=== PATIENT | male | born 1940 | race Caucasian/White ===

== ENCOUNTER → 2020-04-24 | Outpatient (CLI) | payer MEDICARE ==
--- NOTE | 2020-04-24 18:00 | ECHOF ---
Referral Reason:R01.1 heart murmur MEASUREMENTS -------- HEIGHT: 177.8 cm WEIGHT: 86.6 kg BP: RVIDd: 4.1 cm (< 3.3) IVSd: 1.4 cm (0.6 - 1.1) LVIDd: 4.0 cm (3.9 - 5.3) LVPWd: 1.5 cm (0.6 - 1.1) IVSs: 1.4 cm LVIDs: 1.7 cm LVPWs: 1.8 cm LAESV Index (A-L): 29.66 ml/m Ao Diam: 3.7 cm (2.0 - 3.7) AV Cusp: 1.8 cm (1.5 - 2.6) MV EXCURSION: 15.965 mm (> 18.000) MV EF SLOPE: 45 mm/s (70 - 150) EPSS: 0.2 cm MV E Pratik: 0.44 m/s MV DecT: 199 ms MV A Pratik: 0.71 m/s MV E/A Ratio: 0.62 AV maxP.06 mmHg AV meanP.89 mmHg RAP: 5.00 mmHg RVSP: 15.17 mmHg FINDINGS -------- Sinus rhythm. This was a technically adequate study. The left ventricular size is normal. There is moderate concentric left ventricular hypertrophy. O verall left ventricular systolic function is normal with, an EF between 55 - 60 %. The diastolic fi lling pattern is normal for the age of the patient 12.24. The right ventricle is moderately enlarged. LA is midly dilated 29-33ml/m2. The right atrial size is normal. Mobile interatrial septum. There is moderate aortic valve sclerosis. There is no evidence of aortic regurgitation. There is no evidence of aortic stenosis. The mitral valve leaflets are mildly thickened. There is trace mitral regurgitation. The tricuspid valve appears structurally normal. Mild tricuspid regurgitation present. There is n o evidence of pulmonary hypertension. The right ventricular systolic pressure, as measured by Doppl er, is 15.17mmHg. The pulmonic valve was not well visualized. There is no pulmonic regurgitation present. The aortic root size is normal. IVC Not well visulized. There is no pericardial effusion. CONCLUSIONS -------- 1. There is moderate concentric left ventricular hypertrophy. 2. Overall left ventricular systolic function is normal with, an EF between 55 - 60 %. 3. The right ventricle is moderately enlarged. 4. LA is midly dilated 29-33ml/m2. 5. Mobile interatrial septum. 6. There is moderate aortic valve sclerosis. 7. There is trace mitral regurgitation. 8. Mild tricuspid regurgitation present. 9. There is no pericardial effusion. PLASTIC BATTERY ASSEMBLER: Eileen Kennedy RDCS
== END | disposition home or self-care (01) ==
LOC: RADECHMAIN 13:35
PROVIDERS: ATTEND Family Medicine
DX: I08.2 Rheumatic disorders of both aortic and tricuspid valves (principal); Q21.1 Atrial septal defect
CPT/HCPCS: 93306

== ENCOUNTER → 2020-06-24 | Outpatient (CLI) | payer MEDICARE ==
[2020-06-24 16:54] LABS: Chol/HDL Ratio 4.31; LDL Cholesterol,Calculated 134.6 mg/dL (0.0-131.0); VLDL Calculation 27.4 mg/dL (5.00-40.00)
== END | disposition home or self-care (01) ==
LOC: LABWHC1 10:13
PROVIDERS: ATTEND Family Medicine
DX: E78.5 Hyperlipidemia, unspecified (principal)
CPT/HCPCS: 36415; 80061

== ENCOUNTER → 2020-08-12 | Outpatient (CLI) | payer MEDICARE ==
--- NOTE | 2020-08-12 13:53 | XR ---
EXAMINATION TYPE: XR Hip Complete LT DATE OF EXAM: 08/12/2020 CLINICAL HISTORY: Pain in the left hip. TECHNIQUE: AP and frogleg views of the left hip are obtained. COMPARISON: None. FINDINGS: No evidence of acute fracture or dislocation of left hip. There is moderate superior compar tment joint space narrowing with subchondral sclerosis last hilum suggestive of osteoarthritis. Presu med left pelvic phleboliths. IMPRESSION: 1. No evidence of acute fracture or dislocation of the left hip. Moderate osteoarthritis of the left hip.
== END | disposition home or self-care (01) ==
LOC: RADXRMAIN 10:26
PROVIDERS: ATTEND Internal Medicine Rheumatology
DX: M16.12 Unilateral primary osteoarthritis, left hip (principal)
CPT/HCPCS: 73502

== ENCOUNTER → 2020-11-26 | Outpatient (CLI) | payer MEDICARE ==
--- NOTE | 2020-11-26 18:00 | ECHOF ---
Referral Reason:M54.16 Lumbar radiculopathy MEASUREMENTS -------- HEIGHT: 182.9 cm WEIGHT: 83.9 kg BP: IVSd: 1.4 cm (0.6 - 1.1) LVIDd: 3.9 cm (3.9 - 5.3) LVPWd: 1.7 cm (0.6 - 1.1) EDV(Teich): 68 ml IVSs: 1.4 cm LVIDs: 2.8 cm LVPWs: 1.7 cm %IVS Thck: 1 % ESV(Teich): 29 ml EF(Teich): 57 % %FS: 29 % SV(Teich): 38 ml RVIDd: 3.8 cm (< 3.3) PARDEEP Planimetry: 1.9 cm LALs A4C: 4.3 cm LAAs A4C: 14.3 cm LAESV A-L A4C: 40 ml LAESV MOD A4C: 40 ml LALs A2C: 5.6 cm LAAs A2C: 21.1 cm LAESV A-L A2C: 68 ml LAESV MOD A2C: 64 ml LAESV(A-L): 60 ml LAESV Index (A-L): 28.91 ml/m Ao Diam: 3.7 cm (2.0 - 3.7) AV Cusp: 1.1 cm (1.5 - 2.6) EPSS: 0.1 cm MV E Pratik: 0.45 m/s MV DecT: 273 ms MV Dec [place]: 1.6 m/s MV A Pratik: 0.77 m/s MV E/A Ratio: 0.59 MV PHT: 79 ms LVOT Vmax: 0.97 m/s LVOT maxP.75 mmHg LVOT Vmax: 0.98 m/s LVOT Vmean: 0.64 m/s LVOT maxP.83 mmHg LVOT meanP.91 mmHg LVOT Env.Ti: 304 ms LVOT VTI: 19.6 cm AV Vmax: 2.09 m/s AV maxP.55 mmHg AV Vmax: 2.29 m/s AV Vmean: 1.49 m/s AV maxP.94 mmHg AV meanP.82 mmHg AV Env.Ti: 295 ms AV VTI: 41.4 cm MV EF SLOPE: 125.38 mm/s (70 - 150) MV EXCURSION: 17.01 mm (> 18.000) FINDINGS -------- Sinus rhythm. This was a technically good study. The left ventricular size is normal. There is moderate concentric left ventricular hypertrophy. O verall left ventricular systolic function is low-normal with, an EF between 50 - 55 %. The right ventricle is mild to moderately enlarged. LA is midly dilated 29-33ml/m2. The right atrial size is normal. There is mild aortic stenosis present. Peak/mean gradient across the Aortic Valve is 20.94mmHg / 11 .82mmHg. Mild mitral regurgitation is present. Mild tricuspid regurgitation present. Right ventricular systolic pressure is normal at < 35 mmHg. There is no pulmonic regurgitation present. There is no pericardial effusion. CONCLUSIONS -------- 1. The left ventricular size is normal. 2. Overall left ventricular systolic function is low-normal with, an EF between 50 - 55 %. 3. The right ventricle is mild to moderately enlarged. 4. LA is midly dilated 29-33ml/m2. 5. The right atrial size is normal. 6. There is mild aortic stenosis present. 7. Peak/mean gradient across the Aortic Valve is 20.94mmHg / 11.82mmHg. 8. Mild mitral regurgitation is present. 9. Mild tricuspid regurgitation present. 10. There is no pericardial effusion. BIRD RAISER: Nel Reza RDCS
== END | disposition home or self-care (01) ==
LOC: RADNMMAIN 08:53 → RADECHMAIN 08:57
PROVIDERS: ATTEND Family Medicine
DX: I08.3 Combined rheumatic disorders of mitral, aortic and tricuspid valves (principal)
CPT/HCPCS: 93306

== ENCOUNTER → 2020-12-01 | Outpatient (CLI) | payer MEDICARE ==
--- NOTE | 2020-12-01 14:23 | EST ---
EXERCISE STRESS AGE: 80 SEX: M HT: 5'10" WT: 185 lbs. PROTOCOL: Alex STAGE: 2 DURATION OF EXERCISE: 5:00 HEART RATE REST: 72 BLOOD PRESSURE REST: 164/96 MAXIMUM HEART RATE ACHIEVED: 129 MAXIMUM BLOOD PRESSURE: 204/106 85% MPHR: 120 100% MPHR: 141 METS: 7 INDICATIONS: Fatigue. CLINICAL INFORMATION: Baseline EKG shows sinus rhythm, normal axis, normal intervals. Patient exercised on Alex protocol for a total of 5 minutes, achieving 6 METS, 91% of predicted maximal heart rate without chest pain or diagnostic ST-segment depression. CONCLUSION: 1. Poor exercise tolerance. 2. Negative stress test by EKG criteria. MMODL / IJN: [id number] /
== END | disposition home or self-care (01) ==
LOC: RADNMMAIN 09:18
PROVIDERS: ATTEND Family Medicine
DX: R53.83 Other fatigue (principal)
CPT/HCPCS: 93017

== ENCOUNTER → 2020-12-10 | Outpatient (CLI) | payer MEDICARE ==
--- NOTE | 2020-12-10 16:12 | CT ---
EXAMINATION TYPE: CT chest wo con DATE OF EXAM: 12/10/2020 COMPARISON: NONE HISTORY: Myasthenia gravis w/o acute exacerbation CT DLP: 460 mGycm. Automated Exposure Control for Dose Reduction was Utilized. TECHNIQUE: CT scan of the thorax is performed without IV contrast. FINDINGS: LUNGS: Some dependent atelectasis in the bilateral lower lobes. No suspicious noncalcified pulmonar y nodules or masses. There is 4 to 5 mm benign calcified nodule or granuloma left upper lobe axial im age 19. There is no pleural effusion or pneumothorax seen bilaterally. The tracheobronchial tree is patent. MEDIASTINUM: Lack of IV contrast is noted to limit evaluation for mediastinal and especially hilar ad enopathy. There are no definitive greater than 1 cm noncalcified mediastinal lymph nodes. There are calcified subcentimeter left hilar lymph nodes. Anterior superior mediastinum shows no suspicious mas s. Moderate to severe three-vessel coronary artery calcification is present. No cardiomegaly. Trace p ericardial effusion is seen. OTHER: Punctate calcifications throughout the spleen system with product of old granulomatous disease . Exaggerated thoracic kyphosis. Slight scoliotic curvature. Fairly moderate multilevel spurring. Mod erate to severe disc space narrowing noted at T7-T8 and T8-T9 levels. IMPRESSION: No suspicious anterior superior mediastinal mass to suggest thymoma. Evidence of old gran ulomatous disease. No acute pulmonary process.
== END | disposition home or self-care (01) ==
LOC: RADCTMAIN 14:57
PROVIDERS: ATTEND Psychiatry & Neurology Neurology
DX: J84.10 Pulmonary fibrosis, unspecified (principal)
CPT/HCPCS: 71250

== ENCOUNTER → 2020-12-15 | Outpatient (CLI) | payer MEDICARE ==
--- NOTE | 2020-12-15 21:31 | MR ---
EXAMINATION TYPE: MR lumbar spine wo con DATE OF EXAM: 12/15/2020 COMPARISON: None HISTORY: Lumbar radiculopathy CONTRAST: 0 mL intravenous . TECHNIQUE: Multiplanar, multisequence images of the lumbar spine were acquired. FINDINGS: L5-S1: No significant disc bulge or disc herniation. No spinal canal stenosis. No foraminal stenosi s. L4-L5: There is loss of disc height is well. Broad-based disc bulge is present. Small central protrus ion is present. No spinal canal stenosis is present. Asymmetric disc bulging to the left foramen is p resent with severe foraminal stenosis. Mild right foraminal narrowing is present. There is increased signal within the posterior disc space compatible with an annular tear centrally. L3-L4: Disc space narrowing is present. Broad-based disc bulge has moderate anterior thecal sac compr ession. Facet hypertrophy and ligamentum flavum laxity have posterior lateral thecal sac compression. These are contributing to spinal canal stenosis. L2-L3: Broad-based disc bulge is moderate anterior thecal sac compression. Some mild canal stenosis f rom disc bulge and facet hypertrophy may be present. Facet hypertrophy and ligamentum flavum laxity o f posterior lateral thecal sac compression. Severe right foraminal stenosis is present L1-L2: Broad-based disc bulge with mild anterior thecal sac compression. Facet hypertrophy is present . No spinal canal stenosis is present. Moderate right and moderate to severe left foraminal stenosis is present. T12-L1: A based disc bulges mild anterior thecal sac compression. No spinal canal stenosis present. N o foramen are patent. IMPRESSION: 1. Degenerative disc changes greatest 034 L4-5 with milder degenerative disc changes to the remaining upper lumbar spine. 2. Spinal canal stenosis due to disc bulging and facet hypertrophy at L3-4. Milder foraminal narrowin g may be present at L2-3 from similar findings. 3. Disc bulging and foramen contributing to moderate to severe foraminal stenosis discussed above
== END | disposition home or self-care (01) ==
LOC: RADMRIMAIN 10:38
PROVIDERS: ATTEND Family Medicine
DX: M48.061 Spinal stenosis, lumbar region without neurogenic claudication (principal); M51.16 Intervertebral disc disorders with radiculopathy, lumbar region; M99.73 Connective tissue and disc stenosis of intervertebral foramina of lumbar region; M89.38 Hypertrophy of bone, other site
CPT/HCPCS: 72148

== ENCOUNTER → 2020-12-15 | Outpatient (CLI) | payer MEDICARE ==
[2020-12-15 18:35] LABS: Basophils # (A) 0.04 X 10*3/uL (0.00-0.10); Basophils % (A) 0.7 %; Eosinophils # (A) 0.13 X 10*3/uL (0.04-0.35); Eosinophils % (A) 2.3 %; HCT 47.9 % (39.6-50.0); HGB 15.5 g/dL (13.0-17.0); Lymphocytes # (A) 1.46 X 10*3/uL (0.90-5.00); Lymphocytes % (A) 26.3 %; MCH 30.5 pg (27.0-32.0); MCHC 32.4 g/dL (32.0-37.0); MCV 94.1 fL (80.0-97.0); Mean Platelet Volume 9.8 fL (9.5-12.2); Monocytes # (A) 0.52 X 10*3/uL (0.20-1.00); Monocytes % (A) 9.4 %; Neutrophils # (A) 3.38 X 10*3/uL (1.80-7.70); Neutrophils % (A) 60.9 %; Platelet Count 134 X 10*3/uL (140-440); RBC 5.09 X 10*6/uL (4.40-5.60); RDW 13.2 % (11.5-14.5); WBC 5.55 X 10*3/uL (4.50-10.00)
[2020-12-15 19:20] LABS: Erythrocyte Sedimentation Rate 3 mm/Hr (0-20)
[2020-12-15 22:05] LABS: ALT 20 U/L (10-49); AST 22 U/L (14-35); African American GFR (CKD) 98.5 (60.0-200.0); Alkaline Phosphatase 104 U/L (41-126); C Reactive Protein <0.4 mg/dL (0.0-0.8); Calcium 9.6 mg/dL (8.7-10.3); Carbon Dioxide 27.2 mmol/L (21.6-31.8); Chloride 110 mmol/L (96-109); Globulin 1.8 g/dL (1.6-3.3); Glucose 90 mg/dL (70-110); Potassium 4.2 mmol/L (3.5-5.5); Sodium 145 mmol/L (135-145); Total Bilirubin 0.7 mg/dL (0.3-1.2); Total Protein 6.3 g/dL (6.2-8.2)
== END | disposition home or self-care (01) ==
LOC: LABWHC1 11:27
PROVIDERS: ATTEND Internal Medicine Rheumatology
DX: L40.50 Arthropathic psoriasis, unspecified (principal); Z79.899 Other long term (current) drug therapy
CPT/HCPCS: 36415; 80053; 85025; 85652; 86140

== ENCOUNTER → 2020-12-28 | Outpatient (CLI) | payer MEDICARE ==
[2020-12-28 20:38] LABS: Basophils # (A) 0.04 X 10*3/uL (0.00-0.10); Basophils % (A) 0.6 %; Eosinophils # (A) 0.14 X 10*3/uL (0.04-0.35); HCT 47.8 % (39.6-50.0); HGB 15.7 g/dL (13.0-17.0); Lymphocytes # (A) 1.32 X 10*3/uL (0.90-5.00); Lymphocytes % (A) 18.7 %; MCH 31.8 pg (27.0-32.0); MCHC 32.8 g/dL (32.0-37.0); MCV 96.8 fL (80.0-97.0); Mean Platelet Volume 9.9 fL (9.5-12.2); Monocytes # (A) 0.58 X 10*3/uL (0.20-1.00); Monocytes % (A) 8.2 %; Neutrophils # (A) 4.95 X 10*3/uL (1.80-7.70); Neutrophils % (A) 70.2 %; Platelet Count 164 X 10*3/uL (140-440); RBC 4.94 X 10*6/uL (4.40-5.60); RDW 13.2 % (11.5-14.5); WBC 7.05 X 10*3/uL (4.50-10.00)
[2020-12-28 21:15] LABS: % Iron Saturation 16.1 (15.00-50.00); T4, Free (Free Thyroxine) 1.13 ng/dL (0.800-1.800)
[2020-12-29 03:49] LABS: African American GFR (CKD) 94.6 (60.0-200.0); Albumin 4.3 g/dL (3.8-4.9); Albumin/Globulin Ratio 2.14 (1.60-3.17); Anion Gap 11.1 mmol/L (4.00-12.00); BUN/Creat Ratio 18.8 Ratio (12.00-20.00); Blood Urea Nitrogen 16.6 mg/dL (9.0-27.0); Calcium 9.6 mg/dL (8.7-10.3); Carbon Dioxide 24.8 mmol/L (21.6-31.8); Non-African American GFR(CKD) 81.6 (60.0-200.0); Potassium 4.6 mmol/L (3.5-5.5); Total Bilirubin 0.4 mg/dL (0.30-1.20); Total Protein 6.3 g/dL (6.2-8.2)
== END | disposition home or self-care (01) ==
LOC: LABWHC1 12:28
PROVIDERS: ATTEND Psychiatry & Neurology Pain Medicine
DX: E29.1 Testicular hypofunction (principal); R53.83 Other fatigue
CPT/HCPCS: 36415; 80053; 82533; 82550; 82626; 82728; 83036; 83540; 83550; 84402; 84403; 84439; 84443; 84466; 84481; 85025

== ENCOUNTER → 2021-01-22 | Outpatient (CLI) | payer MEDICARE | END | disposition home or self-care (01) | LOC: LABWHC1 10:57 | PROVIDERS: ATTEND Family Medicine | DX: E61.1 Iron deficiency (principal) | CPT/HCPCS: 36415; 83540 ==

== ENCOUNTER → 2021-07-12 | Outpatient (CLI) | payer MEDICARE ==
--- NOTE | 2021-07-12 13:02 | US ---
EXAMINATION TYPE: US abdomen complete DATE OF EXAM: 07/12/2021 COMPARISON: NONE CLINICAL HISTORY: R19.4 Change in bowel habits. Patient states he has a change in bowel habits. EXAM MEASUREMENTS: Liver Length: 14.4 cm Gallbladder Wall: 0.2 cm CBD: 0.6 cm Spleen: 10.6 cm Right Kidney: 10.1 x 4.9 x 5.8 cm Left Kidney: 11.1 x 4.4 x 5.4 cm Limited due to bowel gas Pancreas: Obscured by bowel gas Liver: Left lobe not well visualized, scanned through ribs Gallbladder: wnl Evidence for sonographic Jimenes's sign: neg CBD: Limited visualization Spleen: wnl Right Kidney: No hydronephrosis or masses seen Left Kidney: No hydronephrosis or masses seen Upper IVC: wnl Abd Aorta: proximal obscured by overlying bowel gas The liver is homogenous. The intrahepatic portion of the IVC and proximal abdominal aorta are within normal limits. There is no evidence of cholelithiasis. Common bile duct is unremarkable. The visu alized portions of the pancreas are homogenous. The spleen is unremarkable. Kidneys are symmetric a nd free of hydronephrosis. No renal lesions are seen. IMPRESSION: No significant abnormality appreciated.
--- NOTE | 2021-07-12 15:09 | NM ---
EXAMINATION TYPE: NM hepatobiliary w CCK DATE OF EXAM: 07/12/2021 COMPARISON: NONE HISTORY: Pain TECHNIQUE: After the intravenous administration of 4.15 mCi Tc 99m Mebrofenin hepatobiliary scintigra phy is performed. Immediate images post injection. FINDINGS: There is satisfactory initial accumulation of tracer by the liver. The gallbladder is visualized wit hin 14 minutes. The small bowel activity is noted within 60 minutes. At one hour CCK was administer ed, patient was injected with 1.7 mcg of Kinevac, and gallbladder ejection fraction is calculated at 97%. IMPRESSION: Correlate for hypercontractile state.
== END | disposition home or self-care (01) ==
LOC: RADUSWWP 12:16
PROVIDERS: ATTEND Family Medicine
DX: R19.4 Change in bowel habit (principal)
CPT/HCPCS: 76700; 78227; A9537; J2805

== ENCOUNTER → 2021-08-20 | Outpatient (CLI) | payer MEDICARE ==
[2021-08-20 10:38] LABS: African American GFR (CKD) >90 (>60 ml/min/1.73 sqM); Blood Urea Nitrogen 16 mg/dL (9-20); Non-African American GFR(CKD) 82 (>60 ml/min/1.73 sqM)
--- NOTE | 2021-08-20 14:30 | NM ---
EXAMINATION TYPE: NM bone scan whole body DATE OF EXAM: 08/20/2021 COMPARISON: Same day CT pelvis study HISTORY: Prostate cancer. Delayed whole-body scanning was performed following the injection of 23.0 mCi Tc 99m MDP. Images acq uired 3 hours post injection. Whole body images in anterior and posterior projection along with addit ional spot views of the abdomen and pelvis are acquired FINDINGS: There are areas of increased radiotracer uptake in the lumbar spine appear to correlate with areas of increased degenerative change left L4-L5 along with right L3-L4 and left L1-L2 levels. There is increased radiotracer uptake in the right anterolateral lower rib, correlate for recent trau ma or healing rib fracture. Horizontal increased uptake in mid to lower thoracic vertebra roughly T8 level could reflect subacute compression type fracture. Correlate clinically. No convincing scintigraphic evidence of metastatic disease to the bone when correlating with recent p elvic CT. Lucency from bilateral knee surgery is noted. Symmetric uptake likely reflects product of degenerativ e change bilateral first metatarsophalangeal joints associated with bunion toes. IMPRESSION: As above.
--- NOTE | 2021-08-20 14:59 | CT ---
CT pelvis with contrast HISTORY: Prostate cancer. COMPARISON: None TECHNIQUE: Multiple axial images are obtained through the pelvis following oral and IV contrast mater ial. FINDINGS: The bowel loops are not dilated and there is no evidence of obstruction. There is marked thickening o f the wall the sigmoid colon with a restricted lumen suspicious for chronic diverticulosis however ne oplasm is not entirely excluded. There are no inflammatory changes in the pericolic fat to suggest ac chinik diverticulitis. Prostate gland is moderately enlarged. There is no pelvic adenopathy, free fluid or abscess. Urinary bladder appears normal. The visualized osseous structures are intact there are no focal lytic or blastic osseous abnormalitie s. IMPRESSION: 1. Markedly abnormal sigmoid colon as described above consistent with chronic diverticulosis with sev ere intraluminal narrowing secondary to marked bowel wall thickening. Sigmoid neoplasm is not exclude d. No evidence of acute diverticulitis. 2. Moderate prostatic hypertrophy. 3. No pelvic adenopathy. 4. No focal osseous abnormalities.
== END | disposition home or self-care (01) ==
LOC: RADNMMAIN 09:41
PROVIDERS: ATTEND Urology
DX: C61 Malignant neoplasm of prostate (principal); N40.0 Benign prostatic hyperplasia without lower urinary tract symptoms
CPT/HCPCS: 82565; 84520; 72193; 36415; 78306; A9503; Q9967

== ENCOUNTER 2021-09-14 09:16 | Day surgery (SDC) | payer MEDICARE ==
[2021-09-10 10:31] VITALS: BMI 26.5
[~2021-09-14 09:16] MED LIST: LACTATED RINGERS 1,000 ML IV SCH; LIDOCAINE 1% (10MG/ML) FOR IV START INTRADERMA PRN
[2021-09-14 09:50] VITALS: PULSE 65; TEMP 97
[2021-09-14] MEDS ORDERED: PROPOFOL 10 MG/ML 20 ML VIAL IV ONE (10:36)
--- NOTE | 2021-09-14 10:53 | P.PCN ---
Date of Procedure: 09/14/21 Procedure(s) Performed: BRIEF HISTORY: Patient is a 81-year-old pleasant white male scheduled for an elective colonoscopy as a part of evaluation of change in bowel habits for the last 6 months duration. His been having diarrhea with 3-4 loose watery bowel movements daily but no blood or mucus in the stool. PROCEDURE PERFORMED: Colonoscopy with random biopsy. PREOPERATIVE DIAGNOSIS: Change in bowel habits. IV sedation per Anesthesia. PROCEDURE: After informed consent was obtained, the patient, was brought into the endoscopy unit. IV sedation was administered by Anesthesia under continuous monitoring. Digital rectal examination was normal. Initially the Olympus CF-160 flexible video colonoscope was then inserted in the rectum, gradually advanced into the cecum without any difficulty. Careful examination was performed as the scope was gradually being withdrawn. Ileocecal valve and the appendiceal orifice were visualized and appeared normal. Prep was excellent. Mucosa of the cecum, ascending colon, transverse colon, descending colon, sigmoid colon, and rectum appeared normal. Scattered sigmoid diverticulosis seen. Random biopsies were done from ascending and descending colon to rule out microscopic/collagenous colitis. Retroflexion was performed in the rectum and no lesions were seen. The patient tolerated the procedure well. IMPRESSION: Normal-appearing colon from rectum to cecum with no evidence of colitis or colorectal neoplasia. Scattered sigmoid diverticulosis. RECOMMENDATIONS: Findings of this examination were discussed with the patient as well as a family. He was advised to follow with the biopsy results. In the meantime he will continue with Questran 1 packet as needed for the diarrhea..
[2021-09-14 11:23] VITALS: BP 162/90; RESP 20
== END 2021-09-14 11:23 | disposition home or self-care (01) ==
LOC: ORWHC2ENDO 09:16
PROVIDERS: ATTEND Internal Medicine Gastroenterology
DX: R19.7 Diarrhea, unspecified (principal); K57.30 Diverticulosis of large intestine without perforation or abscess without bleeding; I10 Essential (primary) hypertension; I08.3 Combined rheumatic disorders of mitral, aortic and tricuspid valves; G70.00 Myasthenia gravis without (acute) exacerbation; Z85.46 Personal history of malignant neoplasm of prostate; Z79.899 Other long term (current) drug therapy
CPT/HCPCS: 88305; 45380; J2704

== ENCOUNTER → 2021-11-11 | Outpatient (CLI) | payer MEDICARE ==
[2021-11-11 14:31] LABS: Basophils # (A) 0.06 X 10*3/uL (0.00-0.10); Basophils % (A) 1.1 %; Eosinophils % (A) 3.7 %; HCT 47.6 % (39.6-50.0); HGB 15.3 g/dL (13.0-17.0); Immature Grans, Automated 0.4 %; Lymphocytes # (A) 1.57 X 10*3/uL (0.90-5.00); Lymphocytes % (A) 29.1 %; MCH 30.5 pg (27.0-32.0); MCHC 32.1 g/dL (32.0-37.0); Mean Platelet Volume 9.5 fL (9.5-12.2); Monocytes # (A) 0.52 X 10*3/uL (0.20-1.00); Monocytes % (A) 9.6 %; NRBC Per 100 WBC 0 /100 WBCS (0.0-0.0); Neutrophils # (A) 3.02 X 10*3/uL (1.80-7.70); Neutrophils % (A) 56.1 %; Platelet Count 139 X 10*3/uL (140-440); RBC 5.01 X 10*6/uL (4.40-5.60); RDW 13.6 % (11.5-14.5); WBC 5.39 X 10*3/uL (4.50-10.00)
[2021-11-11 14:39] LABS: African American GFR (CKD) 96.5 (60.0-200.0); Anion Gap 9.2 mmol/L (10.00-18.00); BUN/Creat Ratio 23.24 Ratio (12.00-20.00); Blood Urea Nitrogen 19.2 mg/dL (9.0-27.0); Calcium 9.8 mg/dL (8.7-10.3); Carbon Dioxide 27.9 mmol/L (20.0-27.5); Non-African American GFR(CKD) 83.3 (60.0-200.0); Potassium 4.3 mmol/L (3.5-5.5)
[2021-11-11 18:03] LABS: Appearance,Urine Clear (Clear); Bilirubin,Urine Negative (Negative); Blood,Urine Negative (Negative); Color,Urine Yellow (Yellow); Ketones,Urine Trace mg/dL (Negative); Nitrite,Urine Negative (Negative); PH, Urine 5.5 (5.0-8.0); Specific Gravity,Urine 1.025 (1.001-1.030); Urobilinogen,Urine 0.2 (0.2,1.0)
== END | disposition home or self-care (01) ==
LOC: LABPAT 10:45
PROVIDERS: ATTEND Urology
DX: Z01.812 Encounter for preprocedural laboratory examination (principal); C61 Malignant neoplasm of prostate
CPT/HCPCS: 80048; 81003; 85025

== ENCOUNTER 2021-11-18 10:53 | Day surgery (SDC) | payer MEDICARE ==
[2021-11-16 13:28] VITALS: BMI 26.9
--- NOTE | 2021-11-17 21:19 | P.GSHP ---
History of Present Illness H&P Date: 11/17/21 Chief Complaint: Prostate cancer The patient is an 81-year-old white male with recently diagnosed prostate cancer. His PSA level was 6.90. 5 of 12 biopsies of shown evidence of adenocarcinoma, with a maximal Diamond score of 8/10. His metastatic evaluation was negative. He will be treated with androgen deprivation therapy and IMRT. He now comes for SpaceOAR implant to reduce the risk of rectal toxicity. - Genitourinary (Male) Genitourinary: Reports nocturia Past Medical History Past Medical History: Cancer, Hyperlipidemia, Hypertension, Prostate Disorder, Sleep Apnea/CPAP/BIPAP Additional Past Medical History / Comment(s): Hx. of chronic diarrhea, Prostate cancer, Does not use his CPAP. History of Any Multi-Drug Resistant Organisms: None Reported Past Surgical History: Hernia Repair, Orthopedic Surgery, Tonsillectomy Additional Past Surgical History / Comment(s): Reconstruction R elbow, bilat. knee replacements. Past Anesthesia/Blood Transfusion Reactions: No Reported Reaction Smoking Status: Never smoker - Past Family History Mother Family Medical History: Cancer Additional Family Medical History / Comment(s): Skin cancer Medications and Allergies Home Medications Medication Instructions Recorded Confirmed Type Acetaminophen Tab [Tylenol Tab] 500 mg PO Q6H PRN 09/10/21 11/16/21 History Cholestyramine (with Sugar) 5.7 gm PO BID 09/10/21 11/16/21 History [Cholestyramine Packet] Dicyclomine [Bentyl] 20 mg PO DIRECTED PRN 09/10/21 11/16/21 History Folic Acid 1 mg PO DAILY 09/10/21 11/16/21 History L.acidoph,Paracasei, B.lactis 1 each PO DAILY 09/10/21 11/16/21 History [Probiotic] Leflunomide [Arava] 20 mg PO DAILY 09/10/21 11/16/21 History Pyridostigmine [place] [Mestinon] 60 mg PO TID 09/10/21 11/16/21 History carvediloL [Coreg] 6.25 mg PO BID 09/10/21 11/16/21 History Calcium Carbonate [Calcium] 600 mg PO DAILY 11/16/21 11/16/21 History Cholecalciferol [Vitamin D3 (10 10 mcg PO DAILY 11/16/21 11/16/21 History Mcg = 400 Iu)] Allergies Allergy/AdvReac Type Severity Reaction Status Date / Time No Known Allergies Allergy Verified 11/16/21 13:02 Surgical - Exam - General well developed, well nourished, no distress - Respiratory normal respiratory effort - Abdomen Abdomen: soft, non tender, no guarding, no rigid, no rebound - Genitourinary normal penis with no external lesions, testicles non-tender - Psychiatric oriented to time, oriented to person, oriented to place, speech is normal, memory intact Results - Imaging CT scan - pelvis: report reviewed Assessment and Plan (1) Malignant neoplasm of prostate Status: Acute Code(s): C61 - MALIGNANT NEOPLASM OF PROSTATE SNOMED Code(s): 459921236 Plan: The SpaceOAR implant has been reviewed in detail with the patient. He understands that the rationale for this is to create separation between the prostate and rectum, thus reducing the risk of radiation proctitis. The m aterial begins to breakdown 12-13 weeks following implant, and is reabsorbed by the body. Risks include anesthesia, bleeding, infection, and perineal discomfort. He understands that if the rectal wall is perforated the procedure will need to be aborted.
[~2021-11-18 10:53] MED LIST changes: +DEXAMETHASONE SOD PHOSPHATE 4 MG/ML 1 ML VIAL IV ONE; +ONDANSETRON 4 MG/2 ML VIAL IVP PRN; +fentaNYL (PF) 50 MCG/ML 2 ML AMP IV PRN
[2021-11-18 12:02] VITALS: RESP 16; TEMP 97.5
[2021-11-18] MEDS ORDERED: fentaNYL (PF) 50 MCG/ML 2 ML AMP ONE (13:07)
[2021-11-18] MEDS ORDERED: PROPOFOL 10 MG/ML 20 ML VIAL IV ONE (13:07)
[2021-11-18] MEDS ORDERED: LIDOCAINE 2% INJ 20 MG/ML SQ ONE (13:22)
--- NOTE | 2021-11-18 13:47 | P.OP ---
Date of Procedure: 11/18/21 Preoperative Diagnosis: Adenocarcinoma of the prostate Postoperative Diagnosis: Same Procedure(s) Performed: SpaceOAR Implant Anesthesia: MAC Surgeon: Faisal Sloan Estimated Blood Loss (ml): 0 IV fluids (ml): 100 Pathology: none sent Condition: stable Disposition: PACU Indications for Procedure: The patient is an 81-year-old white male with recently diagnosed prostate cancer. His PSA level was 6.90. 5 of 12 biopsies of shown evidence of adenocarcinoma, with a maximal [place] score of 8/10. His metastatic evaluation was negative. He will be treated with androgen deprivation therapy and IMRT. He now comes for SpaceOAR implant to reduce the risk of rectal toxicity. Operative Findings: 7-8 mm separation created between prostate and rectum. Description of Procedure: The patient was taken to the operating room and placed in the dorsolithotomy position, with his legs supported in Tommie stirrups. The external genitalia was prepped and draped sterilely. The Bruel and Kjaer transrectal ultrasound probe was placed intrarectally. The prostate was imaged. The probe was then placed within the stabilizing stand. A spinal needle was advanced under ultrasonic guidance to the level of the urogenital diaphragm, and lidocaine was used to infiltrate the tissues as the needle was withdrawn. Next, the SpaceOAR needle was passed through the midline of the perineum, 1-2 cm anterior to the anal opening. The needle was slowly advanced under ultrasonic guidance until the needle tip was located within the fat plane between the prostate and rectum, at the level of the mid prostate gland. The needle was confirmed to be midline on the axial imaging. A small amount of normal saline was injected for hydrodissection. Next, the SpaceOAR components were mixed and loaded into the Y connector per protocol. The Y connector was then connected to the needle, and the components were injected slowly over a course of approximately 12 seconds. A total of 10 ml was injected. Significant distance was created between the prostate and rectum, as desired. It should be noted that at no point was there any concern of rectal perforation. The needle was withdrawn, as well as the transrectal ultrasound probe, and the procedure was terminated. The patient tolerated the procedure well and was taken to the recovery room in stable condition.
[2021-11-18 13:48] VITALS: PULSE 64
[2021-11-18 14:01] VITALS: BP 160/89
== END 2021-11-18 14:34 | disposition home or self-care (01) ==
LOC: OR 10:53
PROVIDERS: ATTEND Urology
DX: C61 Malignant neoplasm of prostate (principal); I10 Essential (primary) hypertension; G47.33 Obstructive sleep apnea (adult) (pediatric); E78.5 Hyperlipidemia, unspecified; K52.9 Noninfective gastroenteritis and colitis, unspecified; R35.1 Nocturia; Z85.46 Personal history of malignant neoplasm of prostate; Z47.1 Aftercare following joint replacement surgery; Z96.653 Presence of artificial knee joint, bilateral; Z96.621 Presence of right artificial elbow joint; Z90.89 Acquired absence of other organs; Z80.8 Family history of malignant neoplasm of other organs or systems
CPT/HCPCS: 55874; C1889; J2001; J1100; J0690; J2405; J3010; J2704

== ENCOUNTER 2022-01-27 10:47 | Observation (INO) | payer MEDICARE ==
[2022-01-27] MEDS ORDERED: ASPIRIN 81 MG PO STA (11:02)
[2022-01-27] MEDS ORDERED: NITROGLYCERIN OINT 1 INCH/GM PACKET TOPICAL STA (11:02)
--- NOTE | 2022-01-27 11:15 | ED ---
General Adult HPI - General Chief complaint: Chest Pain Stated complaint: chest & heart problems Time Seen by Provider: 01/27/22 10:55 Source: patient, RN notes reviewed, old records reviewed Mode of arrival: wheelchair Limitations: no limitations - History of Present Illness Initial comments: This is an 81-year-old male with past medical history significant for high blood pressure high cholesterol strong family history of heart disease. Patient comes in today stating he woke up this morning he had pain in the left upper chest which radiated to his back and also short of breath per patient states it lasts for 15-20 minutes and then it went away. Patient states it is currently gone at this time. Patient denies any recent fever chills or cough. Patient denies any abdominal pain patient states he was lightheaded this morning but never passed out and did not ever think he was given a passout. Patient denies any headache patient denies numbness weakness per patient denies abdominal pain patient denies nausea vomiting diarrhea. His any swelling is legs. - Related Data Home Medications Medication Instructions Recorded Confirmed Acetaminophen Tab [Tylenol Tab] 500 mg PO Q6H PRN 09/10/21 11/18/21 Cholestyramine (with Sugar) 5.7 gm PO BID 09/10/21 11/18/21 [Cholestyramine Packet] Dicyclomine [Bentyl] 20 mg PO DIRECTED PRN 09/10/21 11/18/21 Folic Acid 1 mg PO DAILY 09/10/21 11/18/21 L.acidoph,Paracasei, B.lactis 1 each PO DAILY 09/10/21 11/18/21 [Probiotic] Leflunomide [Arava] 20 mg PO DAILY 09/10/21 11/18/21 Pyridostigmine [place] [Mestinon] 60 mg PO TID 09/10/21 11/18/21 carvediloL [Coreg] 6.25 mg PO BID 09/10/21 11/18/21 Calcium Carbonate [Calcium] 600 mg PO DAILY 11/16/21 11/18/21 Cholecalciferol [Vitamin D3 (10 10 mcg PO DAILY 11/16/21 11/18/21 Mcg = 400 Iu)] Allergies Allergy/AdvReac Type Severity Reaction Status Date / Time No Known Allergies Allergy Verified 01/27/22 10:52 Review of Systems ROS Statement: Those systems with pertinent positive or pertinent negative responses have been documented in the HPI. ROS Other: All systems not noted in ROS Statement are negative. Past Medical History Past Medical History: Cancer, Hyperlipidemia, Hypertension, Prostate Disorder, Sleep Apnea/CPAP/BIPAP Additional Past Medical History / Comment(s): Hx. of chronic diarrhea, Prostate cancer, Does not use his CPAP. History of Any Multi-Drug Resistant Organisms: None Reported Past Surgical History: Hernia Repair, Orthopedic Surgery, Tonsillectomy Additional Past Surgical History / Comment(s): Reconstruction R elbow, bilat. knee replacements. Past Anesthesia/Blood Transfusion Reactions: No Reported Reaction Past Psychological History: No Psychological Hx Reported Smoking Status: Never smoker Past Alcohol Use History: None Reported Past Drug Use History: None Reported - Past Family History Mother Family Medical History: Cancer General Exam - General Exam Comments Initial Comments: GENERAL: Patient is well-developed and well-nourished. Patient is nontoxic and well- hydrated and is in no acute distress. ENT: Neck is soft and supple. No significant lymphadenopathy is noted. Oropharynx is clear. Moist mucous membranes. Neck has full range of motion without eliciting any pain. EYES: The sclera were anicteric and conjunctiva were pink and moist. Extraocular movements were intact and pupils were equal round and reactive to light. Eyelids were unremarkable. PULMONARY: Unlabored respirations. Good breath sounds bilaterally. No audible rales rhonchi or wheezing was noted. CARDIOVASCULAR: There is a regular rate and rhythm without any murmurs gallops or rubs. ABDOMEN: Soft and nontender with normal bowel sounds. SKIN: Skin is clear with no lesions or rashes and otherwise unremarkable. NEUROLOGIC: Patient is alert and oriented x3. Cranial nerves II through XII are grossly intact. Motor and sensory are also intact. Normal speech, volume and content. Symmetrical smile. MUSCULOSKELETAL: Normal extremities with adequate strength and full range of motion. Patient has tenderness to the right calf is no swelling no redness. LYMPHATICS: No significant lymphadenopathy is noted PSYCHIATRIC: Normal psychiatric evaluation. Limitations: no limitations Course Vital Signs 01/27/22 01/27/22 10:49 11:21 Temperature 97.8 F Pulse Rate 75 72 Respiratory 18 16 Rate Blood Pressure 170/105 159/86 O2 Sat by Pulse 99 99 Oximetry Medical Decision Making - Medical Decision Making EKG was interpreted by me. EKG shows normal sinus rhythm at a rate of 63 bpm TX interval 232 QRS is 100 QT interval 369 QTC is 376. Patient's EKG shows no ST segment elevation or depression. X-rays interpreted by me. X-ray shows no acute abnormality. I spoke with sounds physician's agreed to admit the patient for chest pain. I wrote admitting orders. I ordered an ultrasound for the calf pain on the right side. - Lab Data Result diagrams: 01/27/22 11:01/27/22 11: Lab Results 01/27/22 01/27/22 01/27/22 Range/Units 11: 11: 11: WBC 4.2 (3.8-10.6) k/uL RBC 4.93 (4.30-5.90) m/uL Hgb 15.8 (13.0-17.5) gm/dL Hct 46.3 (39.0-53.0) % MCV 93.9 (80.0-100.0) fL MCH 32.0 (25.0-35.0) pg MCHC 34.1 (31.0-37.0) g/dL RDW 13.3 (11.5-15.5) % Plt Count 134 L (150-450) k/uL MPV 7.2 Neutrophils % 63 % Lymphocytes % 19 % Monocytes % 8 % Eosinophils % 6 % Basophils % 1 % Neutrophils # 2.6 (1.3-7.7) k/uL Lymphocytes # 0.8 L (1.0-4.8) k/uL Monocytes # 0.4 (0-1.0) k/uL Eosinophils # 0.3 (0-0.7) k/uL Basophils # 0.0 (0-0.2) k/uL PT 10.5 (9.0-12.0) sec INR 1.0 (<1.2) APTT 23.3 (22.0-30.0) sec D-Dimer 0.88 H (<0.60) mg/L FEU Sodium 140 (137-145) mmol/L Potassium 4.2 (3.5-5.1) mmol/L Chloride 105 (98-107) mmol/L Carbon Dioxide 27 (22-30) mmol/L Anion Gap 8 mmol/L BUN 20 (9-20) mg/dL Creatinine 0.69 (0.66-1.25) mg/dL Est GFR (CKD-EPI)AfAm >90 (>60 ml/min/1.73 sqM) Est GFR (CKD-EPI)NonAf 90 (>60 ml/min/1.73 sqM) Glucose 98 (74-99) mg/dL Calcium 9.5 (8.4-10.2) mg/dL Magnesium 2.1 (1.6-2.3) mg/dL Total Bilirubin 0.7 (0.2-1.3) mg/dL AST 31 (17-59) U/L ALT 31 (4-49) U/L Alkaline Phosphatase 84 (38-126) U/L Troponin I (0.000-0.034) ng/mL NT-Pro-B Natriuret Pep pg/mL Total Protein 6.6 (6.3-8.2) g/dL Albumin 4.2 (3.5-5.0) g/dL 01/27/22 01/27/22 Range/Units 11:22 11:22 WBC (3.8-10.6) k/uL RBC (4.30-5.90) m/uL Hgb (13.0-17.5) gm/dL Hct (39.0-53.0) % MCV (80.0-100.0) fL MCH (25.0-35.0) pg MCHC (31.0-37.0) g/dL RDW (11.5-15.5) % Plt Count (150-450) k/uL MPV Neutrophils % % Lymphocytes % % Monocytes % % Eosinophils % % Basophils % % Neutrophils # (1.3-7.7) k/uL Lymphocytes # (1.0-4.8) k/uL Monocytes # (0-1.0) k/uL Eosinophils # (0-0.7) k/uL Basophils # (0-0.2) k/uL PT (9.0-12.0) sec INR (<1.2) APTT (22.0-30.0) sec D-Dimer (<0.60) mg/L FEU Sodium (137-145) mmol/L Potassium (3.5-5.1) mmol/L Chloride (98-107) mmol/L Carbon Dioxide (22-30) mmol/L Anion Gap mmol/L BUN (9-20) mg/dL Creatinine (0.66-1.25) mg/dL Est GFR (CKD-EPI)AfAm (>60 ml/min/1.73 sqM) Est GFR (CKD-EPI)NonAf (>60 ml/min/1.73 sqM) Glucose (74-99) mg/dL Calcium (8.4-10.2) mg/dL Magnesium (1.6-2.3) mg/dL Total Bilirubin (0.2-1.3) mg/dL AST (17-59) U/L ALT (4-49) U/L Alkaline Phosphatase (38-126) U/L Troponin I <0.012 (0.000-0.034) ng/mL NT-Pro-B Natriuret Pep 69 pg/mL Total Protein (6.3-8.2) g/dL Albumin (3.5-5.0) g/dL Disposition Clinical Impression: Chest pain Disposition: ADMITTED IP TO THIS HOSP Referrals: Diego Meza DO [Primary Care Provider] - 1-2 days Time of Disposition: 14:14
[2022-01-27 11:31] LABS: Basophils % (A) 1 %; Eosinophils # (A) 0.3 k/uL (0-0.7); Eosinophils % (A) 6 %; HCT 46.3 % (39.0-53.0); HGB 15.8 gm/dL (13.0-17.5); Lymphocytes # (A) 0.8 k/uL (1.0-4.8); Lymphocytes % (A) 19 %; MCHC 34.1 g/dL (31.0-37.0); MCV 93.9 fL (80.0-100.0); Mean Platelet Volume 7.2; Monocytes # (A) 0.4 k/uL (0-1.0); Monocytes % (A) 8 %; Neutrophils # (A) 2.6 k/uL (1.3-7.7); Neutrophils % (A) 63 %; Platelet Count 134 k/uL (150-450); RBC 4.93 m/uL (4.30-5.90); RDW 13.3 % (11.5-15.5); WBC 4.2 k/uL (3.8-10.6)
[2022-01-27 11:45] LABS: Partial Thromboplastin Time 23.3 sec (22.0-30.0); Prothrombin Time 10.5 sec (9.0-12.0)
[2022-01-27 11:57] LABS: ALT 31 U/L (4-49); AST 31 U/L (17-59); African American GFR (CKD) >90 (>60 ml/min/1.73 sqM); Albumin 4.2 g/dL (3.5-5.0); Alkaline Phosphatase 84 U/L (38-126); Anion Gap 8 mmol/L; Blood Urea Nitrogen 20 mg/dL (9-20); Calcium 9.5 mg/dL (8.4-10.2); Carbon Dioxide 27 mmol/L (22-30); Chloride 105 mmol/L (98-107); Glucose 98 mg/dL (74-99); Magnesium 2.1 mg/dL (1.6-2.3); Non-African American GFR(CKD) 90 (>60 ml/min/1.73 sqM); Potassium 4.2 mmol/L (3.5-5.1); Sodium 140 mmol/L (137-145); Total Bilirubin 0.7 mg/dL (0.2-1.3); Total Protein 6.6 g/dL (6.3-8.2)
--- NOTE | 2022-01-27 12:06 | XR ---
EXAMINATION TYPE: XR chest 2V DATE OF EXAM: 01/27/2022 COMPARISON: None HISTORY: 81-year-old male with chest pain, diaphoretic TECHNIQUE: PA and lateral views FINDINGS: Heart normal size. Tortuous/ectatic thoracic aorta. Prominent left anterior first rib end, similar to the CT of 12/10/2020 scout leaser image. Mild interstitial prominence has a chronic appearance. No consolida tion or pleural effusion. IMPRESSION: Chronic changes. Ectatic/tortuous thoracic aorta. No acute process seen.
--- NOTE | 2022-01-27 14:18 | US ---
EXAMINATION TYPE: US venous doppler duplex LE RT DATE OF EXAM: 01/27/2022 1:59 PM COMPARISON: NONE CLINICAL HISTORY: 81-year-old male calf pain. Right leg pain, patient taking aspirin SIDE PERFORMED: Right TECHNIQUE: The lower extremity deep venous system is examined utilizing real time linear array sonog brown with graded compression, doppler sonography and color-flow sonography. FINDINGS: VESSELS IMAGED: Common Femoral Vein Deep Femoral Vein Greater Saphenous Vein * Femoral Vein Popliteal Vein Small Saphenous Vein * Proximal Calf Veins (* superficial vessels) Right Leg: Appears negative for DVT IMPRESSION: No evidence for DVT within the right lower extremity imaged from the groin to the upper calf.
[2022-01-27] MEDS ORDERED: NITROGLYCERIN SL TABS 0.4 MG TAB SUBLINGUAL PRN (14:19)
--- NOTE | 2022-01-27 17:34 | P.HPIM ---
History of Present Illness H&P Date: 01/27/22 History of Presenting Illness: Patient is a very pleasant 81-year-old male with a past medical history of hypertension, hyperlipidemia, prostate cancer, and obstructive sleep apnea. He presented to the emergency department with the chief complaint of chest pain. Patient reports this pain was felt in left anterior chest and radiated into his back accompanied by mild shortness of breath and a little lightheadedness. Patient reports this pain lasted approximately 20 minutes before spontaneously resolving. He denies having any recent infections or illnesses, denies headach e, diaphoresis, changes in vision or hearing, palpitations, nausea, vomiting, or experiencing any numbness/tingling/weakness/swelling in extremities. He underwent full evaluation in the emergency department. EKG was completed showing normal sinus rhythm at 63 bpm with a first-degree AV block with FL interval of 232 ms, no noted T-wave or ST abnormalities showing no signs of acute ischemia. Chest x-ray revealing a tortuous thoracic aorta otherwise negative for acute cardiopulmonary process. Right lower extremity venous Doppler negative for DVT. CBC, CMP, and coags showing no significant ab normalities. D-dimer slightly elevated at 0.88, but normal range for age correction. Troponin negative at less than 0.012 and pro-BNP 69. Patient has been admitted under our services with consultation to cardiology. Review of systems: Pertinent positives and negatives as discussed in HPI, a complete review of systems was performed and all other systems are negative. Physical exam: Vital signs reviewed and stable. General: Nontoxic, no distress and appears stated age. Derm: Skin warm and dry, normal coloration for ethnicity. Head: Atraumatic, normocephalic and symmetric. Eyes: EOMs intact, no lid lag, and anicteric sclera Mouth: no lip lesions, mucus membranes moist Cardiovascular: regular rate and rhythm with normal S1S2, systolic murmur, positive posterior tibial pulses bilaterally, and cap refill < 2 seconds. Lungs: Respirations even, regular, and unlabored on room air. Lungs CTA bilaterally, no rhonchi, no rales, no wheezing, and no accessory muscle usage. Abdominal: soft, nontender to palpation, no guarding, no appreciable organomegaly Ext: ROM intact. No gross muscle atrophy, no edema, no contractures. No lower extremity edema patient did report pain in right calf previously, now denying. Neuro: Speech clear, face symmetrical and CN II-XII grossly intact with no noted focal neuro deficits Psych: Alert and oriented to person, place, time, and situation. Appropriate and pleasant affect. Assessment and Plan of Care: Chest pain, rule out acute coronary event -Cardiology consult, appreciate further recommendations -Telemetry monitoring -Trend troponins -Cardiac diet, NPO at midnight -Aspirin, atorvastatin, and metoprolol -Lipid profile with a.m. labs. -Echocardiogram Prostate cancer -Patient reports he recently completed 8 weeks of radiation therapy. Patient to continue to follow up outpatient with oncology/urology for monitoring and management. -Continue Flomax 0.4 mg nightly Hypertension -Monitor vital signs and continue daily medication regimen with carvedilol The patient is admitted with an anticipated less than 2 midnight stay for e valuation of chest pain CODE STATUS: Full code DVT prophylaxis: Heparin Discussed with: Patient, patient's daughter and RN Anticipated discharge date: 1-[address]: Home A total of 44 minutes was spent on the care of this complex patient more than 50% of the time was spent in counseling and care coordination. Past Medical History Past Medical History: Cancer, Hyperlipidemia, Hypertension, Prostate Disorder, Sleep Apnea/CPAP/BIPAP Additional Past Medical History / Comment(s): Hx. of chronic diarrhea, Prostate cancer, Does not use his CPAP. History of Any Multi-Drug Resistant Organisms: None Reported Past Surgical History: Hernia Repair, Orthopedic Surgery, Tonsillectomy Additional Past Surgical History / Comment(s): Reconstruction R elbow, bilat. knee replacements. Past Anesthesia/Blood Transfusion Reactions: No Reported Reaction Past Psychological History: No Psychological Hx Reported Smoking Status: Never smoker Past Alcohol Use History: None Reported Past Drug Use History: None Reported - Past Family History Mother Family Medical History: Cancer Medications and Allergies Home Medications Medication Instructions Recorded Confirmed Type Dicyclomine [Bentyl] 20 mg PO DAILY 09/10/21 01/27/22 History Folic Acid 1 mg PO DAILY 09/10/21 01/27/22 History L.acidoph,Paracasei, B.lactis 1 cap PO W/BRKFST 09/10/21 01/27/22 History [Probiotic] Leflunomide [Arava] 20 mg PO DAILY 09/10/21 01/27/22 History Pyridostigmine [place] [Mestinon] 30 mg PO TID 09/10/21 01/27/22 History carvediloL [Coreg] 6.25 mg PO BID 09/10/21 01/27/22 History Calcium Carbonate [Calcium] 600 mg PO DAILY 11/16/21 01/27/22 History Cholecalciferol [Vitamin D3 (25 50 mcg PO DAILY 01/27/22 01/27/22 History Mcg = 1000 Iu)] Cholestyramine (with Sugar) 2 gm PO BID 01/27/22 01/27/22 History [Cholestyramine Powder] Melatonin 5 mg PO HS 01/27/22 01/27/22 History Multivit-Min/FA/Lycopen/Lutein 1 tab PO DAILY 01/27/22 01/27/22 History [Centrum Silver Tablet] Tamsulosin HCl [Flomax] 0.4 mg PO HS 01/27/22 01/27/22 History Allergies Allergy/AdvReac Type Severity Reaction Status Date / Time No Known Allergies Allergy Verified 01/27/22 14:44 Physical Exam Vitals: Vital Signs Temp Pulse Resp BP Pulse Ox 01/27/22 11:21 72 16 159/86 99 01/27/22 10:49 97.8 F 75 18 170/105 99 Intake and Output 01/26/22 01/27/22 01/27/22 22:59 06:59 14:59 Other: Weight 87.09 kg Results CBC & Chem 7: 01/27/22 11:22 01/27/22 11:22 Labs: Abnormal Lab Results - Last 24 Hours (Table) 01/27/22 01/27/22 Range/Units 11: 11: Plt Count 134 L (150-450) k/uL Lymphocytes # 0.8 L (1.0-4.8) k/uL D-Dimer 0.88 H (<0.60) mg/L FEU
--- NOTE | 2022-01-27 17:36 | CA ---
Transthoracic Echo Report Name: Singh Zavala Age: 81 Gender: M : 1940 Exam Date: 01/27/2022 16:04 Exam Location: [place] [facility] Ht (in): 70 Wt (lb): 192 Ordering Physician: Christian Cochran Attending/Referring Phys: Torch Solderer Renata Paredes RDCS Procedure CPT: Indications: Evaluate structure and function of heart Cardiac Hx: Technical Quality: Good Contrast 1: Total Dose (mL): Contrast 2: Total Dose (mL): MEASUREMENTS (Male / Female) Normal Values 2D ECHO LV Diastolic Diameter PLAX 4.3 cm 4.2 - 5.9 / 3.9 - 5.3 cm LV Systolic Diameter PLAX 2.8 cm IVS Diastolic Thickness 1.1 cm 0.6 - 1.0 / 0.6 - 0.9 cm LVPW Diastolic Thickness 1.0 cm 0.6 - 1.0 / 0.6 - 0.9 cm LV Relative Wall Thickness 0.5 RV Internal Dim ED PLAX 3.3 cm LVOT Diameter 2.4 cm LA Systolic Diameter LX 3.4 cm 3.0 - 4.0 / 2.7 - 3.8 cm LA Volume 40.0 cm??? 18 - 58 / 22 - 52 cm??? M-MODE Aortic Root Diameter MM 3.5 cm MV E Point Septal Separation 1.0 cm AV Cusp Separation MM 1.7 cm DOPPLER AV Peak Velocity 252.8 cm/s AV Peak Gradient 25.6 mmHg AV Mean Velocity 170.9 cm/s AV Mean Gradient 13.6 mmHg AV Velocity Time Integral 51.6 cm LVOT Peak Velocity 100.0 cm/s LVOT Peak Gradient 4.0 mmHg AV Area Cont Eq pk 1.7 cm??? MV Peak Velocity 78.0 cm/s MV Peak Gradient 2.4 mmHg MV Mean Velocity 35.9 cm/s MV Mean Gradient 0.7 mmHg MV Velocity Time Integral 20.1 cm MV Area PHT 1.9 cm??? Mitral E Point Velocity 46.5 cm/s Mitral A Point Velocity 78.4 cm/s Mitral E to A Ratio 0.6 MV Deceleration Time 377.5 ms TR Peak Velocity 219.5 cm/s TR Peak Gradient 19.3 mmHg Right Ventricular Systolic Press 24.3 mmHg FINDINGS Left Ventricle Left ventricular ejection fraction is estimated at 55-60 %. Left ventricular cavity size normal. Mildly increased septal wall thickness. Right Ventricle Mild right ventricular dilatation. Mild pulmonary hypertension. Right Atrium Normal right atrial size. Left Atrium Normal left atrial size. Anurysmal atrial septum Mitral Valve Mitral valve thickened. Mitral annular calcification. No mitral stenosis. No mitral regurgitation. Aortic Valve Trileaflet aortic valve. Focal thickening of the aortic valve cusps. Mild aortic stenosis with a peak gradient of 26 mmHg and a mean gradient of 14 mmHg. Tricuspid Valve Structurally normal tricuspid valve. No tricuspid prolapse. No tricuspid stenosis. Mild tricuspid regurgitation. Pulmonic Valve Structurally normal pulmonic valve. Mild pulmonic regurgitation. Pericardium Normal pericardium. No pericardial effusion. Aorta Normal size aortic root and proximal ascending aorta. CONCLUSIONS Normal LV systolic function Mild aortic stenosis Previewed by: Dr. Misbah Cuello MD (Electronically Signed) Final Date: 27 January 2022 17:35
[2022-01-27] MEDS: PYRIDOSTIGMINE 60 MG TAB PO SCH (18:47)
[2022-01-27] MEDS: NITROGLYCERIN OINT 1 INCH/GM PACKET TOPICAL SCH ×2 (20:26→23:17)
[2022-01-27] MEDS ORDERED: MELATONIN 5 MG TABLET PO SCH (21:00)
[2022-01-27] MEDS ORDERED: TAMSULOSIN 0.4 MG CAP.ER.24H PO SCH (21:00)
[2022-01-27] MEDS: CHOLESTYRAMINE (WITH SUGAR) 4 GM PACKET PO SCH (21:24)
[2022-01-27] MEDS: carvediloL 6.25 MG TAB PO SCH (21:25)
[2022-01-27] MEDS: HEPARIN SODIUM,PORCINE/PF 5,000 UNIT/0.5 ML SYRINGE SQ SCH (21:30)
[2022-01-28] MEDS: NITROGLYCERIN OINT 1 INCH/GM PACKET TOPICAL SCH (06:23)
[2022-01-28 07:29] VITALS: BP 146/83; PULSE 63; RESP 18; TEMP 97.8
[2022-01-28] MEDS ORDERED: LACTOBACILLUS ACIDOPH & BULGAR 1 EACH PACKET PO SCH (07:30)
[2022-01-28] MEDS ORDERED: DICYCLOMINE 20 MG TAB PO SCH (09:00)
[2022-01-28] MEDS ORDERED: CALCIUM CARBONATE 500 MG CHEWABLE PO SCH (09:00)
[2022-01-28] MEDS ORDERED: LEFLUNOMIDE 20 MG TAB PO SCH (09:00)
[2022-01-28] MEDS ORDERED: ASPIRIN 81 MG PO SCH (09:00)
[2022-01-28] MEDS ORDERED: ASPIRIN 325 MG TAB PO SCH (09:00)
[2022-01-28] MEDS ORDERED: FOLIC ACID 1 MG TAB PO SCH (09:00)
[2022-01-28] MEDS ORDERED: MULTIVITAMINS, THERA 1 EACH TAB PO SCH (09:00)
[2022-01-28] MEDS ORDERED: CHOLECALCIFEROL 25 MCG (1000 IU) TABLET PO SCH (09:00)
[2022-01-28 09:21] LABS: Chol/HDL Ratio 4.12 Ratio; LDL Cholesterol,Calculated 123.8 mg/dL (0.0-131.0)
[2022-01-28] MEDS: HEPARIN SODIUM,PORCINE/PF 5,000 UNIT/0.5 ML SYRINGE SQ SCH (09:30)
[2022-01-28] MEDS: PYRIDOSTIGMINE 60 MG TAB PO SCH (09:31)
--- NOTE | 2022-01-28 09:33 | P.CRDCN ---
History of Present Illness History of present illness: HISTORY OF PRESENTING ILLNESS This is a pleasant 81-year-old male past medical history significant for hypertension, prostate cancer currently undergoing radiation. We have been asked to see in consultation for chest pain. Patient presents to the emergency department with complaints of episode of chest pain yesterday. Patient only recently moved from [facility], does not follow with a quality assurance monitor chassis. Yesterday he hadepisode of midsternal chest discomfort. Describes it as "sore". It did radiate to his back. He had no associated symptoms. His pain was non-exertional. He was not doing any strenuous activity. He called his PCP and recommended patient come to the ER for evaluation. He denies any shortness of breath, nausea, vomiting, diaphoresis, lightheadedness, or dizziness. He denies any history of CAD, OH, Stroke, Diabetes, dyslipidemia. He denies any tobacco use, alcohol or illicit drug use. Family history includes father has had CAD, OH, stenting and CABG over the age of 50. DIAGNOSTICS EKG reveals sinus rhythm, first-degree AV block, nonspecific T-wave abnormalities, no acute ischemia noted. Telemetry tracings indicate sinus mechanism Echocardiogram revealed EF of 5560 percent, mild aortic stenosis peak/mean gradient of 26 mmHg/14 mmHg Chest xray reported ectatic/tortuous thoracic aorta, similar to CT 12/10/2020. No acute process seen. venous Doppler negative for DVT in the right leg Laboratory reviewed, platelets 134, d-dimer 0.88, sodium 140, potassium 4.2, BUN 20, serum creatinine 0.6, magnesium 2.1, troponin negative 3, proBNP 69 Current home medications include Flomax, melatonin, vitamin D, calcium, multivitamin, Coreg 6.25 mg twice a day, folic acid, bentyl, arava, mestinon REVIEW OF SYSTEMS At the time of my exam: CONSTITUTIONAL: Denies fever or chills. CARDIOVASCULAR: Denies chest pain, shortness of breath, orthopnea, PND or palpitations. RESPIRATORY: Denies cough. GASTROINTESTINAL: Denies abdominal pain, diarrhea, constipation, nausea or vomiting. MUSCULOSKELETAL: Denies myalgias. NEUROLOGIC: Denies numbness, tingling, headacbe or weakness. ENDOCRINE: Denies fatigue, weight change, polydipsia or polyurina. GENITOURINARY: Denies burning, hematuria or urgency with micturation. HEMATOLOGIC: Denies history of anemia or bleeding. PHYSICAL EXAMINATION Vitals 143/83, heart 63, afebrile, saturations 98% on room air CONSTITUTIONAL: No apparent distress. HEENT: Head is normocephalic. Pupils are equal, round. Sclerae anicteric. Mucous membranes of the mouth are moist. No JVD. No carotid bruit. CHEST EXAMINATION: Lungs are clear to auscultation. No chest wall tenderness is noted on palpation or with deep breathing. HEART EXAMINATION: Regular rate and rhythm. S1, S2 heard. Systolic murmur at base. No gallops or rub. ABDOMEN: Soft, nontender. Positive bowel sounds. EXTREMITIES: 2+ peripheral pulses, no lower extremity edema and no calf tenderness. SKIN: warm, dry NEUROLOGIC EXAMINATION: Patient is awake, alert and oriented x3. ASSESSMENT Chest pain, acute coronary syndrome has been ruled out History of hypertension Prostate cancer with radiation Mild aortic stenosis PLAN Perform Cardiolyte stress test to assess for stress induced cardiac ischemia. If abnormal will consider coronary angiography. Lipid panel If stress test with no evidence of reversible ischemia, no further inpatient workup from a cardiology perspective and patient to follow up outpatient with Dr. Cuello. Nurse practitioner note has been reviewed by physician. Signing provider agrees with the documented findings, assessment, and plan of care. Past Medical History Past Medical History: Cancer, Hyperlipidemia, Hypertension, Prostate Disorder, Sleep Apnea/CPAP/BIPAP Additional Past Medical History / Comment(s): Hx. of chronic diarrhea, Prostate cancer, Does not use his CPAP. History of Any Multi-Drug Resistant Organisms: None Reported Past Surgical History: Hernia Repair, Orthopedic Surgery, Tonsillectomy Additional Past Surgical History / Comment(s): Reconstruction R elbow, bilat. knee replacements. Past Anesthesia/Blood Transfusion Reactions: No Reported Reaction Past Psychological History: No Psychological Hx Reported Smoking Status: Never smoker Past Alcohol Use History: None Reported Past Drug Use History: None Reported - Past Family History Mother Family Medical History: Cancer Medications and Allergies Home Medications Medication Instructions Recorded Confirmed Type Dicyclomine [Bentyl] 20 mg PO DAILY 09/10/21 01/27/22 History Folic Acid 1 mg PO DAILY 09/10/21 01/27/22 History L.acidoph,Paracasei, B.lactis 1 cap PO W/BRKFST 09/10/21 01/27/22 History [Probiotic] Leflunomide [Arava] 20 mg PO DAILY 09/10/21 01/27/22 History Pyridostigmine [place] [Mestinon] 30 mg PO TID 09/10/21 01/27/22 History carvediloL [Coreg] 6.25 mg PO BID 09/10/21 01/27/22 History Calcium Carbonate [Calcium] 600 mg PO DAILY 11/16/21 01/27/22 History Cholecalciferol [Vitamin D3 (25 50 mcg PO DAILY 01/27/22 01/27/22 History Mcg = 1000 Iu)] Cholestyramine (with Sugar) 2 gm PO BID 01/27/22 01/27/22 History [Cholestyramine Powder] Melatonin 5 mg PO HS 01/27/22 01/27/22 History Multivit-Min/FA/Lycopen/Lutein 1 tab PO DAILY 01/27/22 01/27/22 History [Centrum Silver Tablet] Tamsulosin HCl [Flomax] 0.4 mg PO HS 01/27/22 01/27/22 History Allergies Allergy/AdvReac Type Severity Reaction Status Date / Time No Known Allergies Allergy Verified 01/27/22 14:44 Physical Exam Vitals: Vital Signs Temp Pulse Pulse Resp BP BP Pulse Ox 01/28/22 02:54 97.6 F 65 16 114/73 99 01/27/22 19:23 97.8 F 69 18 130/77 98 01/27/22 15:40 97.6 F 72 14 132/88 99 01/27/22 15:00 68 16 125/68 99 01/27/22 14:00 86 16 130/56 99 01/27/22 12:00 68 16 130/60 99 01/27/22 11:21 72 16 159/86 99 01/27/22 10:49 97.8 F 75 18 170/105 99 Intake and Output 01/27/22 01/28/22 01/28/22 22:59 06:59 14:59 Other: Voiding Method Toilet # Voids 2 2 Weight 87.09 kg Results 01/27/22 11:22 01/27/22 11:22 Cardiac Enzymes 01/27/22 01/27/22 01/27/22 Range/Units 11:22 11:22 14:52 AST 31 (17-59) U/L Troponin I <0.012 <0.012 (0.000-0.034) ng/mL 01/27/22 Range/Units 18:10 AST (17-59) U/L Troponin I <0.012 (0.000-0.034) ng/mL Coagulation 01/27/22 Range/Units 11: PT 10.5 (9.0-12.0) sec APTT 23.3 (22.0-30.0) sec CBC 01/27/22 Range/Units 11: WBC 4.2 (3.8-10.6) k/uL RBC 4.93 (4.30-5.90) m/uL Hgb 15.8 (13.0-17.5) gm/dL Hct 46.3 (39.0-53.0) % Plt Count 134 L (150-450) k/uL Comprehensive Metabolic Panel 01/27/22 Range/Units 11: Sodium 140 (137-145) mmol/L Potassium 4.2 (3.5-5.1) mmol/L Chloride 105 (98-107) mmol/L Carbon Dioxide 27 (22-30) mmol/L BUN 20 (9-20) mg/dL Creatinine 0.69 (0.66-1.25) mg/dL Glucose 98 (74-99) mg/dL Calcium 9.5 (8.4-10.2) mg/dL AST 31 (17-59) U/L ALT 31 (4-49) U/L Alkaline Phosphatase 84 (38-126) U/L Total Protein 6.6 (6.3-8.2) g/dL Albumin 4.2 (3.5-5.0) g/dL Current Medications Generic Name Dose Route Start Last Admin Trade Name Freq PRN Reason Stop Dose Admin Aspirin 325 mg 01/28/22 09:00 Aspirin 325 Mg Tab PO DAILY [facility] Calcium Carbonate/Glycine 500 mg 01/28/22 09:00 Calcium Carbonate 500 Mg Chewable PO DAILY [facility] Carvedilol 6.25 mg 01/27/22 21:00 01/27/22 21:25 Carvedilol 6.25 Mg Tab PO 6.25 mg BID-W/MEALS [facility] Administration Cholecalciferol 50 mcg 01/28/22 09:00 Cholecalciferol 25 Mcg (1000 Iu) Tablet PO DAILY [facility] Cholestyramine Resin 2 gm 01/27/22 21:00 01/27/22 21:24 Cholestyramine (With Sugar) 4 Gm Packet PO 2 gm BID [facility] Administration Dicyclomine HCl 20 mg 01/28/22 09:00 Dicyclomine 20 Mg Tab PO DAILY [facility] Folic Acid 1 mg 01/28/22 09:00 Folic Acid 1 Mg Tab PO DAILY [facility] Heparin Sodium (Porcine) 5,000 unit 01/28/22 00:00 01/27/22 21:30 Heparin Sodium,Porcine/Pf 5,000 Unit/0.5 Ml Syringe SQ 5,000 unit Q8HR JEIMY Administration Lactobacillus Acidoph/Bulgaricus 1 each 01/28/22 07:30 Lactobacillus Acidoph & Bulgar 1 Each Packet PO W/BRKFST [facility] Leflunomide 20 mg 01/28/22 09:00 Leflunomide 20 Mg Tab PO DAILY [facility] Melatonin 5 mg 01/27/22 21:00 01/27/22 21:25 Melatonin 5 Mg Tablet PO 5 mg HS [facility] Administration Multivitamins 1 each 01/28/22 09:00 Multivitamins, Thera 1 Each Tab PO DAILY [facility] Nitroglycerin 0.4 mg 01/27/22 14:19 Nitroglycerin Sl Tabs 0.4 Mg Tab SUBLINGUAL Q5M PRN Chest Pain Nitroglycerin 1 inch 01/27/22 18:00 01/28/22 06:23 Nitroglycerin Oint 1 Inch/Gm Packet TOPICAL Not Given Q6HR [facility] Pyridostigmine [place] 30 mg 01/27/22 22:00 01/27/22 18:47 Pyridostigmine 60 Mg Tab PO 30 mg TID [facility] Administration Tamsulosin HCl 0.4 mg 01/27/22 21:00 01/27/22 21:25 Tamsulosin 0.4 Mg Cap.Er.24h PO 0.4 mg HS [facility] Administration Intake and Output 01/27/22 01/28/22 01/28/22 22:59 06:59 14:59 Other: Voiding Method Toilet # Voids 2 2 Weight 87.09 kg 01/27/22 11:22 01/27/22 11:22
--- NOTE | 2022-01-28 11:03 | CA ---
Exercise Stress Test Report Name: Singh Zavala Exam Date: 01/28/2022 10:16 Exam Location: [place] Stress Ht (in): 70 Wt (lb): 192 BSA: 2.05 Ordering Phys: Shanelle Austin Referring Phys: Demarcus, Technologist: Donavon Laughlin Age: 81 Gender: M : 1940 Procedure CPT: Indications: Reflex order-Stress test ICD-10 Codes: Patient History: Chest Pain Medications: Meds past 24 hrs: Pretest Chest Pain: STRESS TEST Alex Protocol Exercise Duration (min:sec): 03:[address] Depressions (mm): Angina Score: Mejia Score: Resting HR (bpm): 60 Peak HR (bpm): 130 Resting BP (mmHg): 160 / 97 Peak BP (mmHg): 204 / 78 MPHR: 140 Target HR: 119 % MPHR: 93 METS: 5.6 Total Dose: Peak Dose: Atropine: Double Product: 22588 BP Response: Stress Termination: Reached target heart rate Stress Symptoms: No chest pain or symptoms Stress Summary: ECG ANALYSIS Resting ECG: Normal sinus rhythm normal axis normal intervals Stress ECG: Negative stress test by EKG criteria CONCLUSIONS Very poor exercise tolerance Negative stress test by EKG criteria Cardial lead portion of the stress test will be reported separately Dr. Misbah Cuello MD (Electronically Signed) Final Date: 28 January 2022 11:03
[2022-01-28] MEDS: CHOLESTYRAMINE (WITH SUGAR) 4 GM PACKET PO SCH (12:28)
--- NOTE | 2022-01-28 12:38 | NM ---
EXAMINATION TYPE: NM stress cardiolite complete DATE OF EXAM: 01/28/2022 COMPARISON: NONE HISTORY: Chest pain TECHNIQUE: After the intravenous administration of 9.0 mCi Tc 99m Sestamibi - Rest images obtained 4 5 minutes post injection. The patient exercised using a LEESA protocol and 1 minute prior to peak e xercise was injected with 24.8 mCi Tc 99m Sestamibi - Stress images obtained 15 minutes post injectio n. FINDINGS: Targeted heart rate was achieved during performance of the study. Review of stress and rest SPECT cruz ges demonstrates no stress-related due to reversible perfusion defect. Small fixed defect involving t he apical septal and apical lateral wall not excluded.. Gated analysis shows normal wall motion with an estimated left ventricular ejection fraction of 65 %. IMPRESSION: No scintigraphic evidence for reversible ischemia see above.
[2022-01-28] MEDS: carvediloL 6.25 MG TAB PO SCH (12:39)
--- NOTE | 2022-01-28 14:16 | P.DS ---
Providers Date of admission: 01/27/22 14:19 Expected date of discharge: 01/28/22 Attending physician: Logan Tracy MD Consults: 01/27/22 14:19 Consult Physician Urgent Consulting Provider: [facility] Consult Reason/Comments: Chest pain Do you want consulting provider notified?: Yes Primary care physician: Diego Meza [facility] Course: Discharge Diagnosis: Chest pain, acute coronary event ruled out Prostate cancer Hypertension Hospital Course: Patient is a very pleasant 81-year-old male with a past medical history of hypertension, hyperlipidemia, prostate cancer, and obstructive sleep apnea. He presented to the emergency department with the chief complaint of chest pain. Patient reports this pain was felt in left anterior chest and radiated into his back accompanied by mild shortness of breath and a little lightheadedness. Patient reports this pain lasted approximately 20 minutes before spontaneously resolving. He denies having any recent infections or illnesses, denies headache, diaphoresis, changes in vision or hearing, palpitations, nausea, vomiting, or experiencing any numbness/tingling/weakness/swelling in extremities. He underwent full evaluation in the emergency department. EKG was completed showing normal sinus rhythm at 63 bpm with a first-degree AV block with IN interval of 232 ms, no noted T-wave or ST abnormalities showing no signs of acute ischemia. Chest x-ray revealing a tortuous thoracic aorta otherwise negative for acute cardiopulmonary process. Right lower extremity venous Doppler negative for DVT. CBC, CMP, and coags showing no significant abnormalities. D-dimer slightly elevated at 0.88, but normal range for age co rrection. Troponin negative at less than 0.012 and pro-BNP 69. Patient was admitted under the services with consultation to cardiology. He remained free from any chest pain since arrival to our facility denied ever experiencing any palpitations, shortness of breath, exertional dyspnea, or experiencing any numbness/tingling/weakness in his extremities. He reported an isolated episode of pain in right calf when he was evaluated by ER physician but states he has never had that again pain before or after that evaluation. Troponins were trended and negative at less than 0.0123 draws. Lipid profile unremarkable with exception of slightly elevated total cholesterol of 201. Echocardiogram was completed revealing an EF of 55-60% with mild aortic stenosis and mild pulmonary hypertension. Patient was then evaluated by cardiology and underwent a Cardiolite stress test which was negative showing no scintigraphic evidence for reversible ischemia. Cardiology recommending outpatient follow-up in the office. Patient is medically stable for discharge home at this time. Vital signs unremarkable. No medication changes made. Patient to follow up outpatient with PCP in 1-2 days and cardiology in 1 week. Physical exam: Vital signs reviewed and stable. General: Nontoxic, no distress and appears stated age. Derm: Skin warm and dry, normal coloration for ethnicity. Head: Atraumatic, normocephalic and symmetric. Eyes: EOMs intact, no lid lag, and anicteric sclera Mouth: no lip lesions, mucus membranes moist Cardiovascular: regular rate and rhythm with normal S1S2, systolic murmur, positive posterior tibial pulses bilaterally, and cap refill < 2 seconds. Lungs: Respirations even, regular, and unlabored on room air. Lungs CTA bilater ally, no rhonchi, no rales, no wheezing, and no accessory muscle usage. Abdominal: soft, nontender to palpation, no guarding, no appreciable organomegaly Ext: ROM intact. No gross muscle atrophy, no edema, no contractures. No lower extremity edema patient did report pain in right calf previously, now denying. Neuro: Speech clear, face symmetrical and CN II-XII grossly intact with no noted focal neuro deficits Psych: Alert and oriented to person, place, time, and situation. Appropriate and pleasant affect. A total of 34 minutes of time were spent preparing this complex discharge summary. Pt was discharged on 01/28/22 at 2:08 PM. I reviewed the documentation as provided by the AMIE above, who is the original author of this note. I agree with the documented assessment and plan, with the following changes: none Patient Condition at Discharge: Stable Plan - Discharge Summary Discharge Rx Participant: No New Discharge Prescriptions: Continue Leflunomide [Arava] 20 mg PO DAILY Folic Acid 1 mg PO DAILY Pyridostigmine [place] [Mestinon] 30 mg PO TID L.acidoph,Paracasei, B.lactis [Probiotic] 1 cap PO W/BRKFST Multivit-Min/FA/Lycopen/Lutein [Centrum Silver Tablet] 1 tab PO DAILY Melatonin 5 mg PO HS carvediloL [Coreg] 6.25 mg PO BID Dicyclomine [Bentyl] 20 mg PO DAILY Calcium Carbonate [Calcium] 600 mg PO DAILY Cholecalciferol [Vitamin D3 (25 Mcg = 1000 Iu)] 50 mcg PO DAILY Tamsulosin HCl [Flomax] 0.4 mg PO HS Cholestyramine (with Sugar) [Cholestyramine Powder] 2 gm PO BID Discharge Medication List Dicyclomine [Bentyl] 20 mg PO DAILY 09/10/21 [History] Folic Acid 1 mg PO DAILY 09/10/21 [History] L.acidoph,Paracasei, B.lactis [Probiotic] 1 cap PO W/BRKFST 09/10/21 [History] Leflunomide [Arava] 20 mg PO DAILY 09/10/21 [History] Pyridostigmine [place] [Mestinon] 30 mg PO TID 09/10/21 [History] carvediloL [Coreg] 6.25 mg PO BID 09/10/21 [History] Calcium Carbonate [Calcium] 600 mg PO DAILY 11/16/21 [History] Cholecalciferol [Vitamin D3 (25 Mcg = 1000 Iu)] 50 mcg PO DAILY 01/27/22 [History] Cholestyramine (with Sugar) [Cholestyramine Powder] 2 gm PO BID 01/27/22 [History] Melatonin 5 mg PO HS 01/27/22 [History] Multivit-Min/FA/Lycopen/Lutein [Centrum Silver Tablet] 1 tab PO DAILY 01/27/22 [History] Tamsulosin HCl [Flomax] 0.4 mg PO HS 01/27/22 [History] Follow up Appointment(s)/Referral(s): Diego Meza DO [Primary Care Provider] - 1-2 days Misbah Cuello MD [STAFF PHYSICIAN] - 3 Weeks ([facility] will call patient with appointment.) Patient Instructions/Handouts: Chest Pain (DC) Activity/Diet/Wound Care/Special Instructions: Activity: As tolerated. Take breaks as needed. Diet: Heart healthy and carb consistent diet. Avoid salts, or foods with hidden salts such as canned or boxed foods and frozen dinners. Extra salt makes your heart work harder and traps the fluid in your body for longer. Special Instructions: Take all of your medications as directed and remember to keep all of your doctor's appointments and follow-up as needed. Thank you for allowing us to participate in your care, it was truly a pleasure having you for our patient!!! Discharge Disposition: HOME SELF-CARE
== END 2022-01-28 15:00 | disposition home or self-care (01) ==
LOC: EC 10:47 → 6NMEDSUR 14:19
PROVIDERS: ADMIT Internal Medicine; ATTEND Internal Medicine
DX: R07.89 Other chest pain (principal); R06.02 Shortness of breath; R42 Dizziness and giddiness; I10 Essential (primary) hypertension; Z85.46 Personal history of malignant neoplasm of prostate; E78.00 Pure hypercholesterolemia, unspecified; G47.33 Obstructive sleep apnea (adult) (pediatric); I44.0 Atrioventricular block, first degree; M79.661 Pain in right lower leg; I27.20 Pulmonary hypertension, unspecified; I35.0 Nonrheumatic aortic (valve) stenosis; K52.9 Noninfective gastroenteritis and colitis, unspecified; Z71.9 Counseling, unspecified; Z92.3 Personal history of irradiation; Z91.199 Patient's noncompliance with other medical treatment and regimen due to unspecified reason; Z79.899 Other long term (current) drug therapy; Z80.9 Family history of malignant neoplasm, unspecified; Z82.49 Family history of ischemic heart disease and other diseases of the circulatory system
CPT/HCPCS: 96372 ×2; 99285; 36415; 93005; 93017; 93306; 85379; 83880; 80061; 80053; 83735; 84484; 85025; 85610; 85730; 71046; 93971; 78452; G0378; A9500; J1644 ×2

== ENCOUNTER → 2022-03-07 | Outpatient (CLI) | payer MEDICARE | END | disposition home or self-care (01) | LOC: LABWHC1 11:01 | PROVIDERS: ATTEND Radiology Radiation Oncology | DX: C61 Malignant neoplasm of prostate (principal); G70.00 Myasthenia gravis without (acute) exacerbation | CPT/HCPCS: 36415; 84153 ==

== ENCOUNTER → 2022-07-28 | Outpatient (CLI) | payer MEDICARE ==
--- NOTE | 2022-07-28 12:26 | XR ---
EXAMINATION TYPE: XR chest special 4+ views DATE OF EXAM: 07/28/2022 CLINICAL HISTORY: Cough and dysphasia. TECHNIQUE: Frontal , both oblique, and lateral views of the chest are obtained. COMPARISON: Prior chest x-ray January 27, 2022 FINDINGS: There is mild chronic parenchymal changes without suspicious focal air space opacity, pleu ral effusion, or pneumothorax seen. The cardiac silhouette size is stable and within normal limits w ith ectatic thoracic aorta redemonstrated. The osseous structures are intact. IMPRESSION: Chronic changes without acute pulmonary process. No significant change from prior x-ray.
--- NOTE | 2022-07-28 12:31 | FL ---
EXAMINATION TYPE: FL barium swallow DATE OF EXAM: 07/28/2022 CLINICAL HISTORY: Cough and dysphagia. Feeling of fullness lower cervical level. Increased secretions . TECHNIQUE: A double contrast esophagram is performed utilizing air and barium. A total of 65 second s of fluoroscopic time was utilized during procedure and 28 images obtained COMPARISON: None FINDINGS: Exam suboptimal inspiration episode of silent aspiration and further workup could not be pe rformed. Attempts to clear with coughing were unsuccessful. The esophagus shows satisfactory motility and emptying into the stomach. No proximal diverticulum. No evidence of fixed hiatal hernia or stric ture noted. No significant gastroesophageal reflux was seen during real time performance of this stud y. IMPRESSION: No significant abnormality is seen to account for patient's symptoms of lower cervical d ysphagia. Patient had episode of silent aspiration. Consider modified barium swallow with speech the rapist to further evaluate to make sure this is related to rapid drinking attempt.
== END | disposition home or self-care (01) ==
LOC: RADUSWWP 10:49
PROVIDERS: ATTEND Otolaryngology
DX: R13.10 Dysphagia, unspecified (principal); R05.9 Cough, unspecified
CPT/HCPCS: 71048; 74220

== ENCOUNTER → 2022-08-15 | Outpatient (CLI) | payer MEDICARE ==
--- NOTE | 2022-08-15 11:38 | FL ---
Modified barium swallow. HISTORY: Dysphagia. Modified barium swallow was performed with the department of speech pathology. The patient was prese nted with various consistencies of barium. There is no evidence for aspiration or penetration. Full report is to follow from the department of speech pathology. Impression: Normal study.
== END | disposition home or self-care (01) ==
LOC: RADFLMAIN 10:38
PROVIDERS: ATTEND Otolaryngology
DX: R13.13 Dysphagia, pharyngeal phase (principal)
CPT/HCPCS: 74230

== ENCOUNTER → 2022-11-02 | Outpatient (CLI) | payer MEDICARE ==
[2022-11-02 18:15] LABS: Basophils # (A) 0.05 X 10*3/uL (0.00-0.10); Basophils % (A) 0.9 %; Eosinophils # (A) 0.21 X 10*3/uL (0.04-0.35); HCT 48.6 % (39.6-50.0); HGB 15.9 d/dL (13.0-17.0); Lymphocytes # (A) 1.09 X 10*3/uL (0.90-5.00); Lymphocytes % (A) 20.7 %; MCH 30.6 pg (27.0-32.0); MCHC 32.7 d/dL (32.0-37.0); MCV 93.5 FL (80.0-97.0); Mean Platelet Volume 10.3 FL (9.5-12.2); Monocytes # (A) 0.52 X 10*3/uL (0.20-1.00); Monocytes % (A) 9.9 %; NRBC Per 100 WBC 0 X 10*3/uL (0.00-0.01); Neutrophils # (A) 3.39 X 10*3/uL (1.80-7.70); Neutrophils % (A) 64.3 %; Platelet Count 135 X 10*3/uL (140-440); RDW 14.2 % (11.5-14.5); WBC 5.27 X 10*3/uL (4.50-10.00)
== END | disposition home or self-care (01) ==
LOC: LABWHC1 09:40
PROVIDERS: ATTEND Family Medicine
DX: C61 Malignant neoplasm of prostate (principal)
CPT/HCPCS: 36415; 84153; 85025

== ENCOUNTER → 2023-01-12 | Outpatient (CLI) | payer MEDICARE | END | disposition home or self-care (01) | LOC: LABWHC1 15:01 | PROVIDERS: ATTEND Orthopaedic Surgery | DX: M19.29 Secondary osteoarthritis, other specified site (principal) | CPT/HCPCS: 36415; 85652; 86140 ==

== ENCOUNTER → 2023-02-09 | Outpatient (CLI) | payer MEDICARE | END | disposition home or self-care (01) | LOC: LABWHC1 11:09 | PROVIDERS: ATTEND Radiology Radiation Oncology | DX: C61 Malignant neoplasm of prostate (principal); G70.00 Myasthenia gravis without (acute) exacerbation | CPT/HCPCS: 36415; 84153 ==

== ENCOUNTER → 2023-03-24 | Outpatient (CLI) | payer MEDICARE ==
[2023-03-24 15:07] LABS: Basophils # (A) 0.04 X 10*3/uL (0.00-0.10); Basophils % (A) 0.8 %; Eosinophils # (A) 0.29 X 10*3/uL (0.04-0.35); Eosinophils % (A) 5.9 %; HCT 45.7 % (39.6-50.0); HGB 14.4 g/dL (13.0-17.0); Lymphocytes # (A) 1.05 X 10*3/uL (0.90-5.00); Lymphocytes % (A) 21.3 %; MCH 29.8 pg (27.0-32.0); MCHC 31.5 g/dL (32.0-37.0); MCV 94.6 FL (80.0-97.0); Mean Platelet Volume 9.6 FL (9.5-12.2); Monocytes # (A) 0.47 X 10*3/uL (0.20-1.00); Monocytes % (A) 9.6 %; NRBC Per 100 WBC 0 X 10*3/uL (0.00-0.01); Neutrophils # (A) 3.06 X 10*3/uL (1.80-7.70); Neutrophils % (A) 62.2 %; Platelet Count 129 X 10*3/uL (140-440); RBC 4.83 X 10*6/uL (4.40-5.60); RDW 14.8 % (11.5-14.5); WBC 4.92 X 10*3/uL (4.50-10.00)
[2023-03-24 15:37] LABS: ALT 33 U/L (10-49); AST 35 U/L (14-35); Albumin 4.3 g/dL (3.8-4.9); Albumin/Globulin Ratio 1.87 Ratio (1.60-3.17); Alkaline Phosphatase 84 U/L (41-126); BUN/Creat Ratio 27.57 Ratio (12.00-20.00); Blood Urea Nitrogen 19.3 mg/dL (9.0-27.0); C Reactive Protein <0.30 mg/dL (0.00-0.80); Calcium 9.6 mg/dL (8.7-10.3); Chloride 108 mmol/L (96-109); Globulin 2.3 g/dL (1.6-3.3); Glucose 99 mg/dL (70-110); Hepatitis B Core IgM Nonreactive; Hepatitis B Surface AB- Quant 4.1 mIU/mL; Hepatitis B Surface Antigen Nonreactive; Potassium 3.9 mmol/L (3.5-5.5); Sodium 144 mmol/L (135-145); Total Bilirubin 0.5 mg/dL (0.3-1.2); Total Protein 6.6 g/dL (6.2-8.2)
[2023-03-24 16:29] LABS: Erythrocyte Sedimentation Rate 17 mm/Hr (0-20)
== END | disposition home or self-care (01) ==
LOC: LABWHC1 11:27
PROVIDERS: ATTEND Internal Medicine Rheumatology
DX: L40.50 Arthropathic psoriasis, unspecified (principal); Z79.899 Other long term (current) drug therapy
CPT/HCPCS: 36415; 80053; 85025; 85652; 86140; 86480; 86705; 86706; 87340; 87522

== ENCOUNTER → 2023-06-07 | Outpatient (CLI) | payer MEDICARE ==
[2023-06-07 15:17] VITALS: BP 177/116; PULSE 68; RESP 12; TEMP 98.1
--- NOTE | 2023-06-07 15:31 | P.SLEEP ---
History of Present Illness DATE: 06/07/2023 CONSULTATION/NEW PATIENT EVALUATION HISTORY OF PRESENT ILLNESS/SLEEP-WAKE EVALUATION: 82-year-old gentleman had b een evaluated in the sleep center for obstructive sleep apnea hypopnea syndrome. Patient has history of obstructive sleep apnea hypopnea syndrome diagnosed in another institution about 5 years ago. Patient used his CPAP equipment for less than 1 year and then stopped. SLEEP SCHEDULE: Usually sleep schedule from 11 PM to 8 AM 7 days a week. FALLING ASLEEP: No problems with falling asleep. DURING SLEEP: Patient has loud snoring and multiple awakenings from sleep up to 5 times with 5 episodes of nocturia. No history of hypnogogical hallucinations, sleep paralysis, or cataplexy. Positive history of grinding teeth, dry mouth, restless leg symptoms and sweating during the sleep time. DURING THE DAY/WAKE STATE: In the morning patient wake up tired, has problems with memory, concentration. [place] sleepiness scale is 3. Usually patient does not take any naps. PAST MEDICAL HISTORY: Hypertension, prostate cancer, hyperlipidemia, psoriatic arthritis, myasthenia gravis. Please see below. REVIEW OF SYSTEMS: Snoring, multiple awakenings from sleep. No fevers. No double vision. No recent chest pain. No shortness of breath. No abdominal pain. No bleeding episodes. No blood in urine. No seizure episodes. PHYSICAL EXAMINATION: GENERAL: A pleasant patient without any distress. VITAL SIGNS: Please see below. HEENT: PERRLA, EOMI. Evaluation of oropharynx showed tongue protrudes midline, low position of soft palate Mallampati 4. NECK: Supple. No JVD. Thyroid is not palpable. 16.5 inches in circumference. LUNGS: Clear to percussion and to auscultation. Good air exchange. No wheezing or rhonchi. HEART: S1, S2 regular. No murmurs, gallops or rubs. ABDOMEN: Soft and nontender. Bowel sounds are present. No organomegaly appreciated. EXTREMITIES: No clubbing or cyanosis. MACHINE SNELLER: Awake, alert, and oriented x3. Cranial nerves 2 to 7 intact. There is no fasciculation or atrophy noted. No focal deficits observed. ASSESSMENT: 1. Snoring, multiple awakenings from sleep up to 5 times, witnessed episodes of stop breathing during the sleep, extremely low position of soft palate Mallampati 4, history of obstructive sleep apnea in the past. Obstructive sleep apnea hypopnea syndrome. 2. Hypertension. 3. History of prostate cancer, treated by laser surgery. 4. Hyperlipidemia. 5 psoriatic arthritis. 6 . History of myasthenia gravis. PLAN: 1. Polysomnography for evaluation of patient's breathing during sleep. 2. Following plan after reading sleep study. 3. Preferable position during sleep on the side. 4. No driving if patient feels any sleepiness. Patient is aware of civil and criminal liability for unsafe driving. 5. Sleep hygiene with regular sleep time for at least 7.5-8 hours. 6. Watching weight. Thank you very much for referring this patient for consultation. Sincerely, Pan Newton MD, PhD, FAASM. Diplomat of [place] [employer], Sleep Medicine Board by [place] [employer] [place] [employer] Pediatric Pathologist of [facility] [place] Past Medical History Past Medical History: Cancer, Hyperlipidemia, Hypertension, Prostate Disorder, Sleep Apnea/CPAP/BIPAP Additional Past Medical History / Comment(s): Hx. of chronic diarrhea, Prostate cancer, Does not use his CPAP. History of Any Multi-Drug Resistant Organisms: None Reported Past Surgical History: Hernia Repair, Orthopedic Surgery, Tonsillectomy Additional Past Surgical History / Comment(s): Reconstruction R elbow, bilat. knee replacements. Past Anesthesia/Blood Transfusion Reactions: No Reported Reaction Past Psychological History: No Psychological Hx Reported Smoking Status: Never smoker Past Alcohol Use History: None Reported Past Drug Use History: None Reported - Past Family History Mother Family Medical History: Cancer Medications and Allergies Home Medications Medication Instructions Recorded Confirmed Type Folic Acid 1 mg PO DAILY 09/10/21 06/07/23 History L.acidoph,Paracasei, B.lactis 1 cap PO W/BRKFST 09/10/21 06/07/23 History [Probiotic] Leflunomide [Arava] 20 mg PO DAILY 09/10/21 06/07/23 History Pyridostigmine Harvel [Mestinon] 30 mg PO TID 09/10/21 06/07/23 History carvediloL [Coreg] 6.25 mg PO BID 09/10/21 06/07/23 History Multivit-Min/FA/Lycopen/Lutein 1 tab PO DAILY 01/27/22 06/07/23 History [Centrum Silver Tablet] Tamsulosin HCl [Flomax] 0.4 mg PO HS 01/27/22 06/07/23 History Azelastine HCl [Astepro] 1 mg NASAL BID 06/07/23 06/07/23 History Oxybutynin Chloride [oxyBUTYnin 10 mg PO ONCE 06/07/23 06/07/23 History chloride ER] Allergies Allergy/AdvReac Type Severity Reaction Status Date / Time No Known Allergies Allergy Verified 01/27/22 14:44 Physical Exam Vitals: Vital Signs Temp Pulse Resp BP Pulse Ox 06/07/23 15:01 98.1 F 68 12 177/116 96 Intake and Output 06/07/23 06/07/23 06/07/23 06:59 14:59 22:59 Other: Weight 93.44 kg Sleep Note - Sleep Data ESS Total: 3 - Sleep Note Sleep Note: Temperature: 98.1 F Pulse Rate: 68 Respiratory Rate: 12 Blood Pressure: 177/116 SpO2: 96 Height: 5 ft 8 in Weight: 93.44 kg BMI: Neck Circumference: 16.5
== END ==
LOC: 3 N SLEEP 14:02
PROVIDERS: ATTEND Internal Medicine
DX: G47.33 Obstructive sleep apnea (adult) (pediatric) (principal); I10 Essential (primary) hypertension; E78.5 Hyperlipidemia, unspecified; L40.50 Arthropathic psoriasis, unspecified; Z85.46 Personal history of malignant neoplasm of prostate; Z87.39 Personal history of other diseases of the musculoskeletal system and connective tissue; Z79.899 Other long term (current) drug therapy
CPT/HCPCS: 99211

== ENCOUNTER → 2023-07-13 | Outpatient (CLI) | payer MEDICARE ==
[2023-07-13 16:09] LABS: Basophils # (A) 0.05 X 10*3/uL (0.00-0.10); Basophils % (A) 0.7 %; Eosinophils # (A) 0.25 X 10*3/uL (0.04-0.35); Eosinophils % (A) 3.6 %; HCT 41.2 % (39.6-50.0); HGB 13.2 g/dL (13.0-17.0); Lymphocytes # (A) 1.52 X 10*3/uL (0.90-5.00); MCH 30.1 pg (27.0-32.0); MCV 93.8 FL (80.0-97.0); Monocytes # (A) 0.76 X 10*3/uL (0.20-1.00); NRBC Per 100 WBC 0 X 10*3/uL (0.00-0.01); Neutrophils # (A) 4.31 X 10*3/uL (1.80-7.70); Neutrophils % (A) 62.6 %; Platelet Count 157 X 10*3/uL (140-440); RBC 4.39 X 10*6/uL (4.40-5.60); RDW 14.2 % (11.5-14.5)
[2023-07-13 16:14] LABS: ALT 33 U/L (10-49); AST 37 U/L (14-35); Albumin 4.2 g/dL (3.8-4.9); Albumin/Globulin Ratio 1.91 Ratio (1.60-3.17); Alkaline Phosphatase 84 U/L (41-126); BUN/Creat Ratio 18.25 Ratio (12.00-20.00); Blood Urea Nitrogen 14.6 mg/dL (9.0-27.0); C Reactive Protein <0.30 mg/dL (0.00-0.80); Calcium 9.7 mg/dL (8.7-10.3); Carbon Dioxide 22.7 mmol/L (21.6-31.8); Chloride 106 mmol/L (96-109); Globulin 2.2 g/dL (1.6-3.3); Glucose 99 mg/dL (70-110); Potassium 4.4 mmol/L (3.5-5.5); Sodium 140 mmol/L (135-145); Total Bilirubin 0.6 mg/dL (0.3-1.2); Total Protein 6.4 g/dL (6.2-8.2)
[2023-07-13 16:22] LABS: Erythrocyte Sedimentation Rate 33 mm/Hr (0-20)
== END | disposition home or self-care (01) ==
LOC: LABWHC1 11:40
PROVIDERS: ATTEND Family Medicine
DX: L40.50 Arthropathic psoriasis, unspecified (principal)
CPT/HCPCS: 36415; 80053; 85025; 85652; 86140

== ENCOUNTER 2023-07-25 19:20 | Outpatient (CLI) | payer MEDICARE ==
--- NOTE | 2023-07-26 14:42 | P.PCN ---
Description of Procedure: POLYSOMNOGRAPHY REPORT PROCEDURE(S)/DATE(S): Polysomnography 07/25/2023 CLINICAL: Patient has been seen in the sleep center for evaluation of obstructive sleep apnea-hypopnea syndrome. Please see my consultation. Sleep study has been done for evaluation of patient breathing during the sleep. PROCEDURE: The standard montage for clinical polysomnography included the electroencephalogram, the electrooculogram, the mentalis surface electromyography and Lead II cardiography. The respiratory battery consisted of measurements of nasal/buccal air flow, pressure transducer measurements from nose, thoracic and/or abdominal effort and intercostal surface electromyography. Video monitoring has been done to check for any parasomnia events. Nocturnal oxyhemoglobin saturations were obtained by finger oximetry. Step-walden titration with positive airway pressure was utilized to control the respiratory events, if necessary. RESULTS: During the diagnostic sleep study sleep efficiency was slightly decreased to 81.4%. Latency to sleep onset was in short range 5.0 min. Sleep architecture showed stage NI was slightly increased to 8.4%, Delta sleep was absent 0%, REM sleep was extremely short 2.2%. Respiratory channel showed 0 obstructive apneas, 5 mixed apneas, 0 central apneas, 263 hypopneas with lowest oxygen level 62%. Total apnea hypopnea index was 51.1. Heart rate was in the range between 59 and 68, average 63. EMG showed 0 periodic limb movements per hour with 0 micro-arousals per hour. IMPRESSIONS: 1. Severe obstructive sleep apnea hypopnea syndrome. 2. No significant periodic limb movements have been documented. Please see other impressions from consultation PLAN: 1. The patient will have PAP titration for correction of respiratory abnormalities during the sleep. 2. Losing weight program. 3. Sleep hygiene with regular time in bed for at least 7-1/2 hours. 4. No driving if feeling sleepiness. Thank you very much for allowing me to participate in the management of your patient. Sincerely, Pan Newton MD, PhD, FAASM. Diplomat of [place] Board of Sleep Medicine, Sleep Medicine Board by [place] Board of Internal Medicine Fairground Operator [facility] [place]
== END 2023-07-26 05:45 | disposition home or self-care (01) ==
LOC: 3 N SLEEP 19:20
PROVIDERS: ATTEND Internal Medicine
DX: G47.33 Obstructive sleep apnea (adult) (pediatric) (principal)
CPT/HCPCS: 95810

== ENCOUNTER → 2023-08-30 | Outpatient (CLI) | payer MEDICARE ==
[2023-08-30 17:15] LABS: ALT 26 U/L (10-49); AST 31 U/L (14-35); Chol/HDL Ratio 2.87 Ratio
== END | disposition home or self-care (01) ==
LOC: LABWHC1 10:38
PROVIDERS: ATTEND Internal Medicine Cardiovascular Disease
DX: E78.2 Mixed hyperlipidemia (principal)
CPT/HCPCS: 36415; 80061; 84450; 84460

== ENCOUNTER → 2023-09-07 | Outpatient (CLI) | payer MEDICARE | END | disposition home or self-care (01) | LOC: LABWHC1 09:28 | PROVIDERS: ATTEND Radiology Radiation Oncology | DX: C61 Malignant neoplasm of prostate (principal); G70.00 Myasthenia gravis without (acute) exacerbation | CPT/HCPCS: 36415; 84153 ==

== ENCOUNTER 2023-09-13 19:48 | Outpatient (CLI) | payer MEDICARE ==
--- NOTE | 2023-09-14 15:11 | P.PCN ---
Description of Procedure: CLINICAL: Titration with positive air pressure has been done for correction of respiratory abnormalities during sleep. DESCRIPTION OF PROCEDURE: The standard montage for clinical polysomnography included the electroencephalogram, the electrocardiogram, the mentalis surface electromyography and Lead II cardiography. The respiratory battery consisted of measurements of nasal /buccal air flow, pressure transducer measurements from the nose, thoracic and /or abdominal effort and intercostal surface electromyography. Video monitoring has been done to check for any parasomnia events. Nocturnal oxyhemoglobin saturations were obtained by finger oximetry. Step-walden titration with positive airway pressure was utilized to control respiratory events. Raw data of sleep recording has been reviewed and is adequate. RESULTS: Sleep efficiency was decreased to 79.2%. Latency to sleep onset was short 5.5 minutes.]. Sleep architecture showed stage N1 was increased to 14.7%, Delta sleep was extremely short 0.5%, REM sleep was short 6.1%. Heart rate was minimum 55 BPM, maximum 65 BPM, average 60 BPM. EMG showed 1.8 periodic limb movements per hour. PAP titration have been done with CPAP up to the pressure 14 cm H2O. Patient had problems with CPAP, switched to BPAP. BPAP titrated up to 23/19 cm H2O. The best results were at the pressure 16/12 cm H2O. Apnea hypopnea index reduced to 7.7. IMPRESSION: 1. Severe obstructive sleep apnea hypopnea syndrome improved with PAP treatment. 2. No significant periodic limb movements have been documented. Please see other impressions from consultation. PLAN: 1. The patient will have treatment with positive air pressure equipment with the level of pressure AutoBPAP with maximal inspiratory pressure 17, minimal expiratory pressure 5, pressure support 4 cm H2O and should use it every night for the whole night. 2. Watching weight. 3. Sleep hygiene with regular time in bed for at least 8 hours. 4. No driving if feeling any sleepiness. 5. I will see the patient for follow up visit to explain the results of the test, recommendations, check compliance with treatment and make any necessary adjustment related to mask fitting, pressure and humidification. Thank you very much for allowing me to participate in the management of your patient. Sincerely, Pan Newton MD, PhD, FAASM Diplomat of [place] [employer] Specialties Sleep Medicine Board of [place] Board of Internal Medicine Drawer In of [facility] [place]
== END 2023-09-14 04:45 | disposition home or self-care (01) ==
LOC: 3 N SLEEP 19:48
PROVIDERS: ATTEND Internal Medicine
DX: G47.33 Obstructive sleep apnea (adult) (pediatric) (principal)
CPT/HCPCS: 95811

== ENCOUNTER → 2023-11-09 | Outpatient (CLI) | payer MEDICARE ==
--- NOTE | 2023-12-26 18:21 | FL ---
EXAMINATION TYPE: FL barium swallow DATE OF EXAM: 12/05/2023 8:11 AM COMPARISON: . Chest radiograph from same day. CLINICAL INDICATION:Male, 83 years old with history of R13.10 DYSPHAGIA; PHH, TECHNIQUE: The procedure was explained and patient history elicited. All patient questions were ans wered prior to start of procedure. Multiple spot fluoroscopic images of the esophagus were obtained a fter the oral ingestion of effervescent crystals and liquid barium as the contrast agent. Fluoroscopic time: sec Fluoroscopic images: Radiographs taken: DAP: [id number] FINDINGS: The esophagus demonstrates normal primary and secondary peristalsis. The esophageal mucosa is smooth without evidence of focal stricture, ulceration, or abnormal outpouching. No gastroesophageal reflu x disease was identified IMPRESSION: need to review in room 3 to get images 1. Normal esophagram. 2. Normal esophagram. [facility], , 12/26/2023 6:18 PM
== END | disposition home or self-care (01) ==
LOC: RADUSWWP 09:35
PROVIDERS: ATTEND Otolaryngology
DX: R13.10 Dysphagia, unspecified (principal)
CPT/HCPCS: 74220

== ENCOUNTER 2024-01-11 17:47 | Emergency (ER) | payer MEDICARE ==
--- NOTE | 2024-01-11 18:37 | ED ---
Abdominal Pain HPI - General Source: patient Mode of arrival: ambulatory Limitations: no limitations - History of Present Illness MD Complaint: abdominal pain Onset/Timin -: days(s) Location: diffuse Severity scale (1-10): 8 Worsens With: eating <Chidi Meek - Last Filed: 01/11/24 18:33> <Giorgio Patiño - Last Filed: 01/11/24 23:12> - General Stated Complaint: post op issues Time Seen by Provider: 01/11/24 17:59 - History of Present Illness Initial Comments: This is an 83-year-old male presenting with abdominal pain x 4 days following surgery x 7 days ago. Patient endorses receiving a back implant called "[employer]" for his bladder with subsequent pain (8 of 10) starting on Monday. Patient states pain worsens 1 to 1-1/2 hours after eating. Patient endorses concern for infection despite not having fever. Also endorses loose stool. Endorses initial use of Bactrim DS and recently cefuroxime was added. Patient denies chills, fatigue, body aches, chest pain, dyspnea, nausea, vomiting, constipation. (Chidi Meek) Patient on prophylactic antibiotics after surgery. No fevers. He does endorse diarrhea and generalized abdominal cramping. No chest pain. No vomiting. (Giorgio Patiño) - Related Data Home Medications Medication Instructions Recorded Confirmed Folic Acid 1 mg PO DAILY 09/10/21 06/07/23 L.acidoph,Paracasei, B.lactis 1 cap PO W/BRKFST 09/10/21 06/07/23 [Probiotic] Leflunomide [Arava] 20 mg PO DAILY 09/10/21 06/07/23 Pyridostigmine Bayard [Mestinon] 30 mg PO TID 09/10/21 06/07/23 carvediloL [Coreg] 6.25 mg PO BID 09/10/21 06/07/23 Multivit-Min/FA/Lycopen/Lutein 1 tab PO DAILY 01/27/22 06/07/23 [Centrum Silver Tablet] Tamsulosin HCl [Flomax] 0.4 mg PO HS 01/27/22 06/07/23 Azelastine HCl [Astepro] 1 mg NASAL BID 06/07/23 06/07/23 Oxybutynin Chloride [oxyBUTYnin 10 mg PO ONCE 06/07/23 06/07/23 chloride ER] Allergies Allergy/AdvReac Type Severity Reaction Status Date / Time No Known Allergies Allergy Verified 01/27/22 14:44 Review of Systems ROS Other: All systems not noted in ROS Statement are negative. <FantasmaChidi - Last Filed: 01/11/24 18:33> ROS Other: All systems not noted in ROS Statement are negative. <Giorgio Patiño - Last Filed: 01/11/24 23:12> ROS Statement: Those systems with pertinent positive or pertinent negative responses have been documented in the HPI. Past Medical History Past Medical History: Cancer, Hyperlipidemia, Hypertension, Prostate Disorder, Sleep Apnea/CPAP/BIPAP Additional Past Medical History / Comment(s): Hx. of chronic diarrhea, Prostate cancer, Does not use his CPAP. History of Any Multi-Drug Resistant Organisms: None Reported Past Surgical History: Hernia Repair, Orthopedic Surgery, Tonsillectomy Additional Past Surgical History / Comment(s): Reconstruction R elbow, bilat. knee replacements. Past Anesthesia/Blood Transfusion Reactions: No Reported Reaction Past Psychological History: No Psychological Hx Reported Smoking Status: Never smoker Past Alcohol Use History: None Reported Past Drug Use History: None Reported - Past Family History Mother Family Medical History: Cancer <FantasmaChidi - Last Filed: 01/11/24 18:33> General Exam <FantasmaChidi - Last Filed: 01/11/24 18:33> General appearance: alert, in no apparent distress Head exam: Present: atraumatic, normocephalic Eye exam: Present: normal appearance, PERRL ENT exam: Present: normal exam Neck exam: Present: normal inspection Respiratory exam: Present: normal lung sounds bilaterally. Absent: respiratory distress, wheezes Cardiovascular Exam: Present: regular rate, normal rhythm GI/Abdominal exam: Present: soft, tenderness. Absent: distended, guarding, rebound Extremities exam: Present: normal inspection Back exam: Present: normal inspection, other (Surgical incision sites with mild ecchymosis, no erythema, no drainage) Neurological exam: Present: alert, oriented X3, CN II-XII intact. Absent: motor sensory deficit Psychiatric exam: Present: normal affect, normal mood Skin exam: Present: warm, dry, intact <Giorgio Patiño - Last Filed: 01/11/24 23:12> - General Exam Comments Initial Comments: Visual Physical Exam Vital signs reviewed General: Well-appearing, nontoxic, no acute distress. Head: Normocephalic, atraumatic Eyes: PERRLA, EOMI ENT: Airway patent Chest: Nonlabored breathing Skin: No visual rash, normal skin tone Neuro: Alert and oriented 3 Musculoskeletal: No gross abnormalities (Chidi Meek) Course Vital Signs 01/11/24 01/11/24 18:55 21:23 Temperature 97.5 F L 98.2 F Pulse Rate 90 111 H Respiratory 18 18 Rate Blood Pressure 167/92 123/85 O2 Sat by Pulse 95 98 Oximetry Medical Decision Making <Chidi Meek - Last Filed: 01/11/24 18:33> - Lab Data Result diagrams: 01/11/24 20:09 01/11/24 20:09 <Giorgio Patiño - Last Filed: 01/11/24 23:12> - Medical Decision Making I completed the quick note portion of this chart signed MALKA Carey (Chidi Meek) Was pt. sent in by a medical professional or institution (ISMA Willis, BOTTOM PRECIPITATOR OPERATOR, urgent care, hospital, or long-term...) When possible be specific @ -No Did you speak to anyone other than the patient for history (EMS, parent, family, police, friend...)? What history was obtained from this source @ -No Did you review nursing and triage notes (agree or disagree)? Why? @ -I reviewed and agree with nursing and triage notes Were old charts reviewed (outside hosp., previous admission, EMS record, old EKG, old radiological studies, urgent care reports/EKG's, long-term records)? Report findings @ -No old charts were reviewed Differential Diagnosis (chest pain, altered mental status, abdominal pain women, abdominal pain men, vaginal bleeding, weakness, fever, dyspnea, syncope, headache, dizziness, GI bleed, back pain, seizure, CVA, palpatations, mental health, musculoskeletal)? @ -Not applicable EKG interpreted by me (3pts min.). @ -Sinus rhythm rate of 81, VT interval 207, QRS duration 91, QTc [address] segment elevation. X-rays interpreted by me (1pt min.). @ -X-ray of the abdomen negative for obstruction CT interpreted by me (1pt min.). @ -CT negative for acute process in the abdomen. U/S interpreted by me (1pt. min.). @ -None done What testing was considered but not performed or refused? (CT, X-rays, U/S, labs)? Why? @ -None What meds were considered but not given or refused? Why? @ -None Did you discuss the management of the patient with other professionals (professionals i.e. , PA, BOTTOM PRECIPITATOR OPERATOR, lab, RT, psych nurse, social service liaison, barkeeper, teacher, first aid officer, senior case manager)? Give summary @ -No Was smoking cessation discussed for >3mins.? @ -No Was critical care preformed (if so, how long)? @ -No Were there social determinants of health that impacted care today? How? (Homelessness, low income, unemployed, alcoholism, drug addiction, transportation, low edu. Level, literacy, decrease access to med. care, mcc, rehab)? @ -No Was there de-escalation of care discussed even if they declined (Discuss DNR or withdrawal of care, Hospice)? DNR status @ -No What co-morbidities impacted this encounter? (DM, HTN, Smoking, COPD, CAD, Cancer, CVA, ARF, Chemo, Hep., AIDS, mental health diagnosis, sleep apnea, morbid obesity)? @ -[Recent nerve stimulator. Was patient admitted / discharged? Hospital course, mention meds given and route, prescriptions, significant lab abnormalities, going to OR and other pertinent info. @ -This is a well-appearing 83-year-old male with stable vitals with abdominal discomfort and diarrhea. No rebound or guarding on abdominal exam, mild tenderness. Patient did receive CT of the abdomen pelvis given the recent implant. This is negative for acute process. Normal CBC, normal CMP, negative viral swab. Patient should contact his surgeon regarding symptoms and return with worsening or changing symptoms. Undiagnosed new problem with uncertain prognosis? @ -[No Drug Therapy requiring intensive monitoring for toxicity (Heparin, Nitro, Insulin, Cardizem)? @ -No Were any procedures done? @ -No Diagnosis/symptom? @ -Abdominal pain, diarrhea Acute, or Chronic, or Acute on Chronic? @Acute Uncomplicated (without systemic symptoms) or Complicated (systemic symptoms)? @ -Default Side effects of treatment? @ -No Exacerbation, Progression, or Severe Exacerbation? @ -No Poses a threat to life or bodily function? How? (Chest pain, [place], [place], pneumonia, PE, COPD, DKA, ARF, appy, cholecystitis, CVA, Diverticulitis, Homicidal, Suicidal, threat to staff... and all critical care pts) @ -No (Giorgio Patiño) - Lab Data Lab Results 01/11/24 01/11/24 01/11/24 Range/Units 20:09 20:09 20:09 WBC 7.4 (3.8-10.6) k/uL RBC 4.67 (4.30-5.90) m/uL Hgb 14.2 (13.0-17.5) gm/dL Hct 45.3 (39.0-53.0) % MCV 96.9 (80.0-100.0) fL MCH 30.4 (25.0-35.0) pg MCHC 31.3 (31.0-37.0) g/dL RDW 14.0 (11.5-15.5) % Plt Count 181 (150-450) k/uL MPV 6.8 Neutrophils % 75 % Lymphocytes % 14 % Monocytes % 7 % Eosinophils % 1 % Basophils % 0 % Neutrophils # 5.5 (1.3-7.7) k/uL Lymphocytes # 1.1 (1.0-4.8) k/uL Monocytes # 0.5 (0-1.0) k/uL Eosinophils # 0.1 (0-0.7) k/uL Basophils # 0.0 (0-0.2) k/uL Sodium 135 L (137-145) mmol/L Potassium 4.4 (3.5-5.1) mmol/L Chloride 104 (98-107) mmol/L Carbon Dioxide 26 (22-30) mmol/L Anion Gap 5 mmol/L BUN 22 H (9-20) mg/dL Creatinine 0.79 (0.66-1.25) mg/dL Est GFR (CKD-EPI)AfAm >90 (>60 ml/min/1.73 sqM) Est GFR (CKD-EPI)NonAf 84 (>60 ml/min/1.73 sqM) Glucose 126 H (74-99) mg/dL Plasma Lactic Acid Armando 0.8 (0.7-2.0) mmol/L Calcium 9.4 (8.4-10.2) mg/dL Total Bilirubin 0.9 (0.2-1.3) mg/dL AST 32 (17-59) U/L ALT 21 (4-49) U/L Alkaline Phosphatase 103 (38-126) U/L Total Protein 7.0 (6.3-8.2) g/dL Albumin 4.2 (3.5-5.0) g/dL Amylase 79 (30-110) U/L Lipase 107 (23-300) U/L Influenza Type A (PCR) (Not Detectd) Influenza Type B (PCR) (Not Detectd) RSV (PCR) (Not Detectd) SARS-CoV-2 (PCR) (Not Detectd) 01/11/24 Range/Units 22:03 WBC (3.8-10.6) k/uL RBC (4.30-5.90) m/uL Hgb (13.0-17.5) gm/dL Hct (39.0-53.0) % MCV (80.0-100.0) fL MCH (25.0-35.0) pg MCHC (31.0-37.0) g/dL RDW (11.5-15.5) % Plt Count (150-450) k/uL MPV Neutrophils % % Lymphocytes % % Monocytes % % Eosinophils % % Basophils % % Neutrophils # (1.3-7.7) k/uL Lymphocytes # (1.0-4.8) k/uL Monocytes # (0-1.0) k/uL Eosinophils # (0-0.7) k/uL Basophils # (0-0.2) k/uL Sodium (137-145) mmol/L Potassium (3.5-5.1) mmol/L Chloride (98-107) mmol/L Carbon Dioxide (22-30) mmol/L Anion Gap mmol/L BUN (9-20) mg/dL Creatinine (0.66-1.25) mg/dL Est GFR (CKD-EPI)AfAm (>60 ml/min/1.73 sqM) Est GFR (CKD-EPI)NonAf (>60 ml/min/1.73 sqM) Glucose (74-99) mg/dL Plasma Lactic Acid Armando (0.7-2.0) mmol/L Calcium (8.4-10.2) mg/dL Total Bilirubin (0.2-1.3) mg/dL AST (17-59) U/L ALT (4-49) U/L Alkaline Phosphatase (38-126) U/L Total Protein (6.3-8.2) g/dL Albumin (3.5-5.0) g/dL Amylase (30-110) U/L Lipase (23-300) U/L Influenza Type A (PCR) Not Detected (Not Detectd) Influenza Type B (PCR) Not Detected (Not Detectd) RSV (PCR) Not Detected (Not Detectd) SARS-CoV-2 (PCR) Not Detected (Not Detectd) Disposition <Chidi Meek - Last Filed: 01/11/24 18:33> Is patient prescribed a controlled substance at d/c from ED?: No Time of Disposition: 23:12 <Giorgio Patiño - Last Filed: 01/11/24 23:12> Clinical Impression: Abdominal pain Disposition: HOME SELF-CARE Condition: Fair Instructions (If sedation given, give patient instructions): Abdominal Pain (ED) Additional Instructions: Please contact your urologist and inform them of the symptoms you are having. Referrals: Diego Meza DO [Primary Care Provider] - 1-2 days
--- NOTE | 2024-01-11 20:21 | XR ---
EXAMINATION TYPE: XR KUB DATE OF EXAM: 01/11/2024 7:55 PM CLINICAL INDICATION: Male, 83 years old with history of abdominal pain; [facility] COMPARISON: None. TECHNIQUE: One radiographic view of the abdomen was obtained. FINDINGS: The bowel gas pattern is nonspecific without dilated loops of small or large bowel. . Fecal material and gas are demonstrated throughout the colon and rectum. There is no evidence for organomegaly or pneumoperitoneum. The osseous structures are intact. No ab normal calcifications are present. Nerve stimulator device projects over the left pelvis. Multilevel degeneration changes throughout the spine. IMPRESSION: Nonspecific bowel gas pattern without radiographic evidence for acute process. [facility], , 01/11/2024 8:18 PM
[2024-01-11 20:34] LABS: Basophils % (A) 0 %; Eosinophils # (A) 0.1 k/uL (0-0.7); Eosinophils % (A) 1 %; HCT 45.3 % (39.0-53.0); HGB 14.2 gm/dL (13.0-17.5); Lymphocytes # (A) 1.1 k/uL (1.0-4.8); Lymphocytes % (A) 14 %; MCH 30.4 pg (25.0-35.0); MCHC 31.3 g/dL (31.0-37.0); MCV 96.9 fL (80.0-100.0); Mean Platelet Volume 6.8; Monocytes # (A) 0.5 k/uL (0-1.0); Monocytes % (A) 7 %; Neutrophils # (A) 5.5 k/uL (1.3-7.7); Neutrophils % (A) 75 %; Platelet Count 181 k/uL (150-450); RBC 4.67 m/uL (4.30-5.90); WBC 7.4 k/uL (3.8-10.6)
[2024-01-11 20:50] LABS: ALT 21 U/L (4-49); AST 32 U/L (17-59); African American GFR (CKD) >90 (>60 ml/min/1.73 sqM); Albumin 4.2 g/dL (3.5-5.0); Alkaline Phosphatase 103 U/L (38-126); Amylase 79 U/L (30-110); Anion Gap 5 mmol/L; Blood Urea Nitrogen 22 mg/dL (9-20); Calcium 9.4 mg/dL (8.4-10.2); Carbon Dioxide 26 mmol/L (22-30); Chloride 104 mmol/L (98-107); Glucose 126 mg/dL (74-99); Lipase 107 U/L (23-300); Non-African American GFR(CKD) 84 (>60 ml/min/1.73 sqM); Potassium 4.4 mmol/L (3.5-5.1); Sodium 135 mmol/L (137-145); Total Bilirubin 0.9 mg/dL (0.2-1.3)
[2024-01-11] MEDS: HYDROmorphone 0.5 MG/0.5 ML SYRINGE IVP STA (22:08)
[2024-01-11] MEDS: SODIUM CHLORIDE 0.9% 500 ML 500 ML IV ONE (22:09)
--- NOTE | 2024-01-11 22:51 | CT ---
EXAMINATION TYPE: CT abdomen pelvis w con DATE OF EXAM: 01/11/2024 COMPARISON: None. HISTORY: Pt c/o abdominal pain from rib cage down, nausea, diarrhea, and decreased energy since after surgery last Monday. Had sacral nerve stimulator placed at [facility] to help with bladder CT DLP: 1229.4 mGycm, Automated Exposure Control for Dose Reduction was Utilized. CONTRAST: CT scan of the abdomen and pelvis is performed with oral and with IV Contrast, patient injected with 100 mL of Isovue 300. FINDINGS: LUNG BASES: Coronary artery calcification is present. Some calcification at the level of the aortic v alve is seen. LIVER/GB: No significant abnormality is appreciated. PANCREAS: No significant abnormality is seen. SPLEEN: No significant abnormality is seen. ADRENALS: No significant abnormality is seen. KIDNEYS: No significant abnormality is seen. BOWEL: Sigmoid colonic diverticulosis. A few diverticula in the left colon. No convincing CT evidence for acute diverticulitis. No abnormal small or large bowel dilatation. Appendix within normal limits for base of cecum. PROSTATE/SEMINAL VESICLES: No gross abnormality seen. LYMPH NODES: No greater than 1cm abdominal or pelvic lymph nodes are appreciated. OSSEOUS STRUCTURES: Moderate narrowing and spurring of both hip joints. Multilevel spurring and disc space narrowing in the thoracolumbar spine. OTHER: Small fat-containing umbilical hernia. Mild calcified plaque of the aorta. More prominent calc ified plaque of the celiac artery. IMPRESSION: No bowel obstruction. No significant acute finding is seen to account for patient's clin ical symptoms. [facility], , 01/11/2024 10:48 PM
[2024-01-11 23:35] VITALS: BP 120/54; PULSE 92; RESP 20; TEMP 98
== END 2024-01-11 23:35 | disposition home or self-care (01) ==
LOC: EC 17:47
DX: R10.9 Unspecified abdominal pain (principal); Z11.52 Encounter for screening for COVID-19
CPT/HCPCS: 36415; 93005; 80053; 82150; 83605; 83690; 85025; 87636; 74018; 74177; 99284; 96374; J1171; Q9967

== ENCOUNTER → 2024-02-15 | Outpatient (CLI) | payer MEDICARE ==
[2024-02-15 13:54] VITALS: BP 149/77; PULSE 104; RESP 16; TEMP 98.2
--- NOTE | 2024-02-15 15:10 | P.PROGSL ---
Subjective DATE: [] FOLLOW UP VISIT. Patient with obstructive sleep apnea hypopnea syndrome return to sleep center for follow-up visit after patient had sleep studies and started treatment with CPAP. This is his first visit after starting using CPAP. Information from previous visit have been reviewed. Patient is using PAP equipment every night for the whole night, getting PAP supplies in time. The patient does not have significant problems with the mask, PAP unit and humidification. [place] sleepiness scale is 4. I checked information from PAP unit. PAP unit pressure maximal inspiratory pressure 17, minimal expiratory pressure 5, pressure support 4, average pressure 16.7/12.7 cm H2O. Usage is 99% for more then 4 hours, average 7 hours per night. Leak is slightly increased to 31 l/m. Apnea Hypopnea Index is increased to 15.1 and that includes central apnea hypopnea index 5.2, which is normal. MEDICATIONS have been reviewed, please see below. During physical exam: GENERAL: A pleasant patient without any distress. VITAL SIGNS: Please see below, weight is 203 lbs. HEENT: PERRLA, EOMI.low position of soft palate, Mallapati 4 . NECK: Supple. No JVD. LUNGS: Clear to percussion and to auscultation. Good air exchange. No wheezing or rhonchi. HEART: S1, S2 regular. ABDOMEN: Soft and nontender.[] EXTREMITIES: No clubbing or cyanosis. SWIMMING POOL SERVICEPERSON: Awake, alert, and oriented x3. No focal deficit. Impressions: 1. Severe obstructive sleep apnea-hypopnea syndrome, apnea hypopnea index during the sleep study 51.1. Patient demonstrated great compliance with treatment, benefiting from treatment. Apnea-hypopnea index significantly improved but still increased to 15.1 and that include 5.2 central events per hour. 2. Hypertension. 3. Hyperlipidemia. 4. History of myasthenia gravis. 5. History of prostate cancer, treated by laser surgery. 6. Psoriatic arthritis. I changed parameters of BiPAP to maximal inspiratory pressure 19 cm of water. Plan: 1. Continue using PAP equipment every night for the whole night. 2. Sleep hygiene with regular time in bed for at least 7.5-8 hours 3. PAP unit should stay lower then position of the head. 4. Advised patient to remove all remaining water from humidifier canister daily and make it dry after each usage. Refill canister with fresh distilled water before each usage. 5. Watching weight. 6. Precautions related to driving. No driving if feel any sleepiness. 7. I will maintain prescription for PAP supplies including mask, tube, filters. 8. Follow up visit in 2 months or earlier if patient has any problems. Thank you very much for allowing me to participate in the management of your patient. Pan Newton MD, PhD, FAASM. Diplomat of [place] [employer], Sleep Medicine Board by [place] [employer] [facility] T[facility] [place] Objective - Vital Signs Vital Signs: Vital Signs Temp 98.2 F 02/15/24 13:53 Pulse 104 H 02/15/24 13:53 Resp 16 02/15/24 13:53 BP 149/77 02/15/24 13:53 Pulse Ox 96 02/15/24 13:53 FiO2 Intake & Output 02/14/24 02/15/24 02/15/24 18:59 06:59 18:59 Weight 92.079 kg Home Medications: Home Medications Medication Instructions Recorded Confirmed Type Folic Acid 1 mg PO DAILY 09/10/21 02/15/24 History L.acidoph,Paracasei, B.lactis 1 cap PO W/BRKFST 09/10/21 02/15/24 History [Probiotic] Leflunomide [Arava] 20 mg PO DAILY 09/10/21 02/15/24 History Pyridostigmine [place] [Mestinon] 30 mg PO TID 09/10/21 02/15/24 History carvediloL [Coreg] 6.25 mg PO BID 09/10/21 06/07/23 History Multivit-Min/FA/Lycopen/Lutein 1 tab PO DAILY 01/27/22 02/15/24 History [Centrum Silver Tablet] Tamsulosin HCl [Flomax] 0.4 mg PO HS 01/27/22 06/07/23 History Azelastine HCl [Astepro] 1 mg NASAL BID 06/07/23 02/15/24 History Oxybutynin Chloride [oxyBUTYnin 10 mg PO ONCE 06/07/23 06/07/23 History chloride ER] HYDROcodone/APAP 5-325MG [[place] 1 tab PO Q6HR PRN #12 tab 01/11/24 Rx 5-325] Aspirin EC [Ecotrin Low Dose] 81 mg PO DAILY 02/15/24 02/15/24 History Rosuvastatin [Crestor] 10 mg PO DAILY 02/15/24 02/15/24 History Valsartan 80 mg PO DAILY 02/15/24 02/15/24 History
== END ==
LOC: 3 N SLEEP 13:26
PROVIDERS: ATTEND Internal Medicine
DX: G47.33 Obstructive sleep apnea (adult) (pediatric) (principal); I10 Essential (primary) hypertension; E78.5 Hyperlipidemia, unspecified; L40.50 Arthropathic psoriasis, unspecified; Z85.46 Personal history of malignant neoplasm of prostate; Z87.39 Personal history of other diseases of the musculoskeletal system and connective tissue; Z99.89 Dependence on other enabling machines and devices; Z79.899 Other long term (current) drug therapy
CPT/HCPCS: 99212

== ENCOUNTER → 2024-03-07 | Outpatient (CLI) | payer MEDICARE ==
--- NOTE | 2024-03-07 11:55 | FL ---
EXAMINATION TYPE: FL UGI air w small bowel DATE OF EXAM: 03/07/2024 11:02 AM COMPARISON: CLINICAL INDICATION:Male, 83 years old with history of R10.9 ABDOMINAL PAIN; TECHNIQUE: The procedure was explained and patient history elicited. All patient questions were ans wered prior to start of procedure. A behavioral therapist radiograph of the abdomen was also reviewed. Multiple flu oroscopic spot images of the esophagus, stomach and duodenum were obtained following ingestion of liq uid barium and EZ-gas crystals. After the completion of the upper gastrointestinal examination, a de tailed small bowel examination was performed. The patient was asked to ingest additional liquid shun um and incremental frontal abdominal radiographs were then taken until contrast was visualized in the cecum. Fluoroscopic time:52 sec Fluoroscopic images:0 Radiographs taken: 105 DAP: NOT REPORTED [id number] FINDINGS: Upper GI examination: The behavioral therapist abdominal radiograph demonstrates a normal bowel gas pattern without dilated loops of small or large bowel. There is no evidence for organomegaly or pneumoperitoneum. No abnormal calcificati ons. The visualized osseous structures are intact. Nerve stimulator projects over the left sacrum. Mu ltilevel degeneration changes spine. The esophagus appears unremarkable without evidence of focal stricture, ulceration or abnormal outpou joey. No hiatal hernia was visualized. No evidence of gastroesophageal reflux was seen when the p atient was instructed to bear down. The stomach and duodenum demonstrate a normal course and contour. There is no evidence of focal gastric or duodenal ulceration, stricture, or abnormal outpouching. S mall bowel mucosal folds are felt to be within normal limits. Detailed small bowel examination: Contrast is seen extending from the duodenojejunal junction into the cecum at 0 minute film which is approximately 15 minutes after start of exam which is fracture and the expected time period. The sma ll bowel follows normal distribution and contour without any evidence of extraluminal or intraluminal irregularity. There is no displacement of bowel loops or extraluminal extravasation of contrast mat erial. IMPRESSION: 1. Hyper kinesis with exam terminating following the upper GI portion 0 minute film. 2. Normal detailed small bowel examination. [facility], , 03/07/2024 11:53 AM
== END | disposition home or self-care (01) ==
LOC: RADFLMAIN 09:27
PROVIDERS: ATTEND Internal Medicine Gastroenterology
DX: R10.9 Unspecified abdominal pain (principal)
CPT/HCPCS: 74240; 74248

== ENCOUNTER → 2024-04-10 | Outpatient (CLI) | payer MEDICARE ==
[2024-04-10 11:40] VITALS: BP 145/83; PULSE 72; RESP 16; TEMP 98.2
--- NOTE | 2024-04-10 11:56 | P.PROGSL ---
Subjective DATE: 04/10/2024 FOLLOW UP VISIT. Patient with obstructive sleep apnea hypopnea syndrome return to sleep center for follow-up visit. Information from previous visit have been reviewed. Patient is using PAP equipment every night for the whole night, getting PAP supplies in time. The patient does not have significant problems with the mask, PAP unit and humidification. [place] sleepiness scale is 7, which is normal. I checked information from PAP unit. BPAP unit pressure maximal inspiratory pressure 19, minimal expiratory pressure 5, pressure support 4, average pressure 17.5/13.5 cm H2O. Usage is 100% for more then 4 hours, average 6.2 hours per night. Leak is 7 l/m, which is in acceptable range. Apnea Hypopnea Index is 8.8, which include central apnea hypopnea index 3.1, which showed improvements comparing with previous visit when it was 15.1 with central apnea hypopnea index 5.2. MEDICATIONS have been reviewed, please see below. During physical exam: GENERAL: A pleasant patient without any distress. VITAL SIGNS: Please see below, weight is 206 lbs. HEENT: PERRLA, EOMI.low position of soft palate, Mallapati 4 . NECK: Supple. No JVD. LUNGS: Clear to percussion and to auscultation. Good air exchange. No wheezing or rhonchi. HEART: S1, S2 regular. ABDOMEN: Soft and nontender.[] EXTREMITIES: No clubbing or cyanosis. AGRICULTURAL CHEMIST: Awake, alert, and oriented x3. No focal deficit. Impressions: 1. Severe obstructive sleep apnea-hypopnea syndrome. Patient demonstrated great compliance with treatment, benefiting from treatment. 2. Hypertension. 3. Hyperlipidemia. 4. History of myasthenia gravis. 5. Psoriatic arthritis. 6. History of prostate cancer, treated by laser surgery. 7. Very mild obesity BMI 31.1, patient increased weight on 3 pounds comparing with previous visit. Plan: 1. Continue using PAP equipment every night for the whole night. 2. Sleep hygiene with regular time in bed for at least 7.5-8 hours 3. PAP unit should stay lower then position of the head. 4. Advised patient to remove all remaining water from humidifier canister daily and make it dry after each usage. Refill canister with fresh distilled water before each usage. 5. Watching weight. 6. Precautions related to driving. No driving if feel any sleepiness. 7. I will maintain prescription for PAP supplies including mask, tube, filters. 8. Follow up visit in 4 months or earlier if patient has any problems. Thank you very much for allowing me to participate in the management of your patient. Pan Newton MD, PhD, FAASM. Diplomat of [place] [employer], Sleep Medicine Board by [employer] Refuse Laborer [facility] [place] Objective - Vital Signs Vital Signs: Vital Signs Temp 98.2 F 04/10/24 11:39 Pulse 72 04/10/24 11:39 Resp 16 04/10/24 11:39 BP 145/83 04/10/24 11:39 Pulse Ox 97 04/10/24 11:39 FiO2 Intake & Output 04/09/24 04/10/24 04/10/24 18:59 06:59 18:59 Weight 93.44 kg Home Medications: Home Medications Medication Instructions Recorded Confirmed Type Folic Acid 1 mg PO DAILY 09/10/21 04/10/24 History L.acidoph,Paracasei, B.lactis 1 cap PO W/BRKFST 09/10/21 04/10/24 History [Probiotic] Leflunomide [Arava] 20 mg PO DAILY 09/10/21 04/10/24 History Pyridostigmine [place] [Mestinon] 30 mg PO TID 09/10/21 04/10/24 History carvediloL [Coreg] 6.25 mg PO BID 09/10/21 06/07/23 History Multivit-Min/FA/Lycopen/Lutein 1 tab PO DAILY 01/27/22 04/10/24 History [Centrum Silver Tablet] Tamsulosin HCl [Flomax] 0.4 mg PO HS 01/27/22 06/07/23 History Azelastine HCl [Astepro] 1 mg NASAL BID 06/07/23 02/15/24 History Oxybutynin Chloride [oxyBUTYnin 10 mg PO ONCE 06/07/23 06/07/23 History chloride ER] HYDROcodone/APAP 5-325MG [[place] 1 tab PO Q6HR PRN #12 tab 01/11/24 Rx 5-325] Aspirin EC [Ecotrin Low Dose] 81 mg PO DAILY 02/15/24 04/10/24 History Rosuvastatin [Crestor] 10 mg PO DAILY 02/15/24 04/10/24 History Valsartan 80 mg PO DAILY 02/15/24 04/10/24 History
== END ==
LOC: 3 N SLEEP 11:05
PROVIDERS: ATTEND Internal Medicine
DX: G47.33 Obstructive sleep apnea (adult) (pediatric) (principal); I10 Essential (primary) hypertension; E78.5 Hyperlipidemia, unspecified; G70.9 Myoneural disorder, unspecified; E66.9 Obesity, unspecified; L40.50 Arthropathic psoriasis, unspecified; Z85.46 Personal history of malignant neoplasm of prostate; Z68.31 Body mass index [BMI] 31.0-31.9, adult; Z86.69 Personal history of other diseases of the nervous system and sense organs
CPT/HCPCS: 99212

== ENCOUNTER → 2024-08-08 | Outpatient (CLI) | payer MEDICARE ==
[2024-08-08 11:37] VITALS: BP 129/74; PULSE 70; RESP 12; TEMP 97.9
--- NOTE | 2024-08-08 12:11 | P.PROGSL ---
Subjective DATE: 08/08/2024 FOLLOW UP VISIT. Patient with obstructive sleep apnea hypopnea syndrome return to sleep center for follow-up visit. Information from previous visit have been reviewed. Patient is using PAP equipment every night for the whole night, getting PAP supplies in time. The patient does not have significant problems with the mask, PAP unit and humidification. [place] sleepiness scale is 4, which is normal. I checked information from PAP unit. BPAP unit pressure maximal inspiratory pressure 19, minimal expiratory pressure 5, pressure support 4, average pressure 17.2 or 13.2 cm H2O. Usage is 100% for more then 4 hours, average 6.9 hours per night. Leak is 7 l/m, which is in acceptable range. Apnea Hypopnea Index is 7.8, which include 2.3 centrals, slightly increased, but better than during previous visit when it was 8.8. MEDICATIONS have been reviewed, please see below. During physical exam: GENERAL: A pleasant patient without any distress. VITAL SIGNS: Please see below, weight is 208 lbs. HEENT: PERRLA, EOMI.low position of soft palate, Mallapati 4 . NECK: Supple. No JVD. LUNGS: Clear to percussion and to auscultation. Good air exchange. No wheezing or rhonchi. HEART: S1, S2 regular. ABDOMEN: Soft and nontender.[] EXTREMITIES: No clubbing or cyanosis. SOW MANAGER: Awake, alert, and oriented x3. No focal deficit. Impressions: 1. Severe obstructive sleep apnea-hypopnea syndrome, few central events by reading from BiPAP unit. Patient demonstrated great compliance with treatment, benefiting from treatment. 2. Hypertension. 3. Hyperlipidemia. 4. History of myasthenia gravis in the past. 5. Psoriatic arthritis. 6. History of prostate cancer, status post surgical treatment with laser. 7. Very mild obesity, BMI 31.4. Plan: 1. Continue using PAP equipment every night for the whole night. 2. Sleep hygiene with regular time in bed for at least 7.5-8 hours 3. PAP unit should stay lower then position of the head. 4. Advised patient to remove all remaining water from humidifier canister daily and make it dry after each usage. Refill canister with fresh distilled water before each usage. 5. Watching weight. 6. Precautions related to driving. No driving if feel any sleepiness. 7. I will maintain prescription for PAP supplies including mask, tube, filters. 8. Follow up visit in 8 months or earlier if patient has any problems. Thank you very much for allowing me to participate in the management of your patient. Pan Newton MD, PhD, FAASM. Diplomat of [place] [employer], Sleep Medicine Board by [place] [employer] [facility]rator [facility] [place] Objective - Vital Signs Vital Signs: Vital Signs Temp 97.9 F 08/08/24 11:34 Pulse 70 08/08/24 11:34 Resp 12 08/08/24 11:34 BP 129/74 08/08/24 11:34 Pulse Ox 96 08/08/24 11:34 FiO2 Intake & Output 08/07/24 08/08/24 08/08/24 18:59 06:59 18:59 Weight 94.347 kg Home Medications: Home Medications Medication Instructions Recorded Confirmed Type L.acidoph,Paracasei, B.lactis 1 cap PO W/BRKFST 09/10/21 08/08/24 History [Probiotic] Leflunomide [Arava] 20 mg PO DAILY 09/10/21 08/08/24 History Pyridostigmine [place] [Mestinon] 30 mg PO TID 09/10/21 08/08/24 History Multivit-Min/FA/Lycopen/Lutein 1 tab PO DAILY 01/27/22 08/08/24 History [Centrum Silver Tablet] Azelastine HCl [Astepro] 1 mg NASAL BID 06/07/23 08/08/24 History Aspirin EC [Ecotrin Low Dose] 81 mg PO DAILY 02/15/24 08/08/24 History Rosuvastatin [Crestor] 10 mg PO DAILY 02/15/24 08/08/24 History Valsartan 80 mg PO DAILY 02/15/24 08/08/24 History Amoxicillin/Potassium Clav 1 tab PO BID 05/01/24 05/07/24 History [Amox-Clav 875-125 mg Tablet] Acetaminophen Tab [Tylenol] 650 mg PO Q6H #30 tab 05/07/24 08/08/24 Rx Docusate [Colace] 100 mg PO BID #20 capsule 05/07/24 Rx Ibuprofen [Motrin] 600 mg PO Q6HR PRN #40 tab 05/07/24 08/08/24 Rx oxyCODONE HCL [OxyIR] 5 mg PO Q6H PRN 3 Days #30 tab 05/07/24 Rx
== END ==
LOC: 3 N SLEEP 11:19
PROVIDERS: ATTEND Internal Medicine
DX: G47.33 Obstructive sleep apnea (adult) (pediatric) (principal); I10 Essential (primary) hypertension; E78.5 Hyperlipidemia, unspecified; L40.50 Arthropathic psoriasis, unspecified; E66.9 Obesity, unspecified; Z98.890 Other specified postprocedural states; Z99.89 Dependence on other enabling machines and devices; Z86.69 Personal history of other diseases of the nervous system and sense organs; Z68.31 Body mass index [BMI] 31.0-31.9, adult
CPT/HCPCS: 99212

== ENCOUNTER → 2024-10-18 | Outpatient (CLI) | payer MEDICARE ==
[2024-10-18 15:44] LABS: Basophils # (A) 0.06 X 10*3/uL (0.00-0.10); Basophils % (A) 1.1 %; Eosinophils # (A) 0.21 X 10*3/uL (0.04-0.35); Eosinophils % (A) 3.8 %; HCT 42.6 % (39.6-50.0); HGB 13.2 g/dL (13.0-17.0); Immature Grans, Automated 0.40 %; Lymphocytes # (A) 1.19 X 10*3/uL (0.90-5.00); Lymphocytes % (A) 21.4 %; MCH 29.4 pg (27.0-32.0); MCHC 31.0 g/dL (32.0-37.0); MCV 94.9 FL (80.0-97.0); Monocytes # (A) 0.66 X 10*3/uL (0.20-1.00); Monocytes % (A) 11.9 %; NRBC Per 100 WBC 0 X 10*3/uL (0.00-0.01); Neutrophils # (A) 3.42 X 10*3/uL (1.80-7.70); Neutrophils % (A) 61.4 %; Platelet Count 154 X 10*3/uL (140-440); RBC 4.49 X 10*6/uL (4.40-5.60); RDW 16.5 % (11.5-14.5); WBC 5.56 X 10*3/uL (4.50-10.00)
[2024-10-18 16:03] LABS: BUN/Creat Ratio 27.86 Ratio (12.00-20.00); Blood Urea Nitrogen 19.5 mg/dL (9.0-27.0); Chloride 105 mmol/L (96-109); Glucose 95 mg/dL (70-110); Potassium 4.1 mmol/L (3.5-5.5); Sodium 140 mmol/L (135-145)
[2024-10-18 16:04] LABS: ALT 37 U/L (10-49); AST 34 U/L (14-35); Albumin 4.0 g/dL (3.8-4.9); Albumin/Globulin Ratio 2.11 Ratio (1.60-3.17); Alkaline Phosphatase 96 U/L (41-126); Anion Gap 12.30 mmol/L (4.00-12.00); Calcium 9.0 mg/dL (8.7-10.3); Carbon Dioxide 22.7 mmol/L (21.6-31.8); Globulin 1.9 g/dL (1.6-3.3); Total Protein 5.9 g/dL (6.2-8.2)
== END | disposition home or self-care (01) ==
LOC: LABWHC1 11:12
PROVIDERS: ATTEND Internal Medicine Rheumatology
DX: L40.59 Other psoriatic arthropathy (principal); Z79.899 Other long term (current) drug therapy
CPT/HCPCS: 36415; 80053; 85025; 85652; 86140